=== PATIENT | male | born 1980 | race Two or more races ===

== ENCOUNTER 2024-07-12 16:57 | Inpatient (IN) | payer MEDICAID, SELFPAY ==
[2024-07-12] VITALS (9 sets, daily range): BP systolic 120–162; BP diastolic 68–97; PULSE 77–92; RESP 13–98; TEMP 37.1–37.3; O2SAT 96–98
--- NOTE | 2024-07-12 17:10 | XR_ITS ---
Examination: CT abdomen with intravenous contrast CT pelvis with intravenous contrast 2-D coronal reconstructions 2-D sagittal reconstructions Date and time of exam:July 12, 20242010 hours INDICATIONS: Gastrointestinal bleeding abdominal pain vomiting blood, blood in the stool beginning 3 days ago. CTDI: vol (mGy) 5.71 DLP: (mGycm) 285 Technique: Multiple axial sections of the abdomen and pelvis have been obtained. 64 slice high-resolution scanner used. 3 mm axial sections have been obtained, post intravenous injection 60 cc [id number] 2-D sagittal, coronal reconstructions obtained. Low dose protocols were performed. One or more of the following dose reduction techniques were used; automated exposure control, adjustment of the mA and/or KV according to patient size, use of iterative reconstruction technique. Findings: Mild enlargement cardiac contour Bibasilar pneumonia Thickening along wall of the esophagus Cirrhosis, moderate ascites Contracted gallbladder Portosystemic collateral vessels medial to the spleen Esophageal varices Perigastric varices No pancreatic mass Mild diffuse thickening of the colonic wall Intact osseous structures No renal or ureteral calculi, no bowel obstruction IMPRESSION: Cirrhosis Moderate ascites Esophageal and perigastric varices Hepatic colopathy
--- NOTE | 2024-07-12 17:10 | EKG_ITS ---
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
--- NOTE | 2024-07-12 17:10 | XR_ITS ---
Examination: Venous duplex lower extremity sonogram, bilateral. Date and time of exam: July 12, 2024 1758 hours INDICATIONS: Bilateral leg swelling and pain beginning 10 days ago Technique: Multiple sonographic images of the deep venous system have been obtained. B-mode/2-D grayscale imaging of vascular structures and Doppler spectral analysis (waveforms) and color performed Both legs are examined. Findings: Deep venous systems do not demonstrate abnormal echogenicity. All visualized deep veins exhibit compressibility. All visualized deep veins exhibit augmentation. Impression: Negative for deep vein thrombosis
--- NOTE | 2024-07-12 17:11 | PD.EDRME ---
Rapid Medical Screening Exam [facility] Arrival date/time: 07/12/24 16:57 44-year-old male presents the emergency department day for complaints of abdominal distention and pain patient reports blood in his stool and vomiting blood Chief Complaint: Abdominal Pain
[2024-07-12 18:34] LABS: Basophils # (Auto) 0.1 Thou/mm3 (0.0-0.2); Basophils % (Auto) 1 % (0-2.5); Eosinophils # (Auto) 0.3 Thou/mm3 (0.0-0.5); Eosinophils % (Auto) 3 % (0-10); Immature Granulocytes % (Auto) 0 % (0-0); Immature Granulocytes Auto 0.03 Thou/mm3 (0.00-0.00); Lymphocytes # (Auto) 2.1 Thou/mm3 (1.0-4.8); Lymphocytes % (Auto) 20 % (10-50); Mean Corpuscular HGB Conc 34.3 g/dl (31.0-37.0); Mean Corpuscular Hemoglobin 31.1 pg (25.0-35.0); Mean Corpuscular Volume 90 fL (80-100); Monocytes # (Auto) 1.3 Thou/mm3 (0.0-0.8); Monocytes % (Auto) 12 % (0-12); Neutrophils # (Auto) 6.8 Thou/mm3 (1.8-7.7); Neutrophils % (Auto) 64 % (37-80); Nucleated Red Blood Cell % 0 /100 WBC (0); Platelet Count 292 Thou/mm3 (140-440); RDW Standard Deviation 57.7 fL (35.1-43.9); Red Blood Count 2.19 Miln/mm3 (4.50-5.90); White Blood Count 10.6 Thou/mm3 (3.8-10.6)
[2024-07-12 18:46] LABS: INR 1.5 (0.9-1.3); Partial Thromboplastin Time 30.5 Seconds (22.0-36.0); Prothrombin Time 15.6 Seconds (9.0-12.2)
[2024-07-12 18:49] LABS: Ammonia 14 uMol/L (11-32)
[2024-07-12 18:50] LABS: Alanine Aminotransferase 23 U/L (10-49); Albumin, Serum 2.9 gm/dL (3.5-5.0); Albumin/Globulin Ratio 0.6 (1.2-2.2); Alcohol, Blood Medical < 10.0 mg/dL (0-10.0); Alkaline Phosphatase 223 U/L (46-116); Anion Gap 7 (7-16); Aspartate Amino Transferase 74 U/L (0-34); BUN/Creatinine Ratio 8 Ratio (12-20); Bilirubin,Total 1.9 mg/dL (0.3-1.2); Blood Urea Nitrogen 6 mg/dL (9-23); Calcium 7.5 mg/dL (8.3-10.6); Calcium (Corrected) 8.4 mg/dL (8.5-10.1); Carbon Dioxide 26.4 mMol/L (20.0-31.0); Chloride 104 mMol/L (98-107); Creatinine (Component) 0.8 mg/dL (0.6-1.3); Globulin 4.5 gm/dL (2.3-3.5); Glucose 170 mg/dL (74-106); Lipase 89 U/L (12-53); Osmolality,Calculated 275 (275-295); Potassium 3.8 mMol/L (3.4-5.1); Sodium 137 mMol/L (136-145); Total Protein 7.4 gm/dL (5.7-8.2); Troponin I < 0.020 ng/mL (0.0-0.045); eGFR > 60 See Note
[2024-07-12 18:52] LABS: Hematocrit 19.8 % (41.0-53.0); Hemoglobin 6.8 g/dL (13.5-16.0)
[2024-07-12 20:14] LABS: Magnesium 1.7 mg/dL (1.6-2.6)
--- NOTE | 2024-07-12 20:45 | PD.EDADULT ---
ED General RME/HPI General Chief complaint: Abdominal Pain Stated complaint: ABD PAIN, BLOODY EMESIS/STOOL,GENERALIZED SWELLING Time Seen by Provider: 07/12/24 18:59 Arrival date/time: 07/12/24 16:57 RME / HPI RME / HPI narrative: This patient is a 44-year-old male with alcohol use disorder and no significant past medical history presented to the ED with 2 weeks history of abdominal distention, pain and bilateral lower extremity swelling. He reported that he had black tarry stool last week around 3 bowel movements 3 times a day. He denied having a bowel movement from last 5 day. He felt nauseous however denied vomiting. He rated his generalized abdominal pain as a 7 on 10 nonradiating and achy in nature with abdominal distention. He had subjective feeling of fever/chills and generalized weakness. He has been feeling dizzy from past couple of days. Prior to 2 weeks, patient reported to have coffee-ground emesis however did not had vomiting recently. He drinks alcohol moderately and last drink was yesterday. He usually drinks 1-2 beers every day. He does not follows up with a PCP as outpatient. He does reported to have mild shortness of breath with chest pain. He stated the chest pain comes with breathing. He wakes up at the night to urinate more than 6-7 times. He has mild exertional shortness of breath. Denies dysuria or burning during urination. Vitals showed mildly elevated blood pressure 162/97, heart rate 83 bpm. Breathing comfortably and afebrile. He was saturating well on room air. Labs were significant for acute blood loss anemia with hemoglobin 6.8, hematocrit 19.8% with platelet count 292. Coagulopathy with INR 1.5. Electrolyte panel unremarkable with kidney function stable BUN 6 and creatinine 0.8. Blood glucose 170. Corrected calcium 8.4. Magnesium 1.7. Elevated T. bili 1.9 with AST 74 ALT 23. Mildly elevated ALP 223. Ammonia unremarkable troponin I negative. Albumin 2.9. Mildly elevated lipase 89. Blood alcohol level less than 10. Hep panel pending. Venous Doppler was negative for DVT.EKG showed sinus rhythm with QTc 436. CT abdomen showed moderate ascites with gastric and esophageal varices with hepatic colopathy. Patient would need to be admitted for GI bleed/acute blood loss anemia, liver cirrhosis with esophageal varices, possible SBP, and need to have paracentesis therapeutic and diagnostic to evaluate for ruling out SBP. IV antibiotic Rocephin 2 g was given x 1, in addition to Protonix, octreotide and electrolytes calcium gluconate and magnesium was repleted. GI specialist, Dr. Mcneal was consulted who recommended to keep the patient n.p.o. and he will likely perform endoscopy tomorrow morning. Admitting Hospitalist team was consulted for admission. PMH: Nonsignificant PSH: Appendectomy SH: Drinks alcohol moderately 1-2 beers every day. Last drink was yesterday. No history of illicit drug use. Denies smoking. Allergies: NKDA Home meds none MD complaint: abdominal distention and pain with B/L LE swelling Onset (ago): week(s) (2) Location: abdomen Radiation: non-radiation and abdomen Severity: moderate Severity scale (1-10): 7 Quality: aching Consistency: intermittent Relieving factors: none Associated symptoms: malaise and shortness of breath Related Data Allergies Allergy/AdvReac Type Severity Reaction Status Date / Time No Known Allergies Allergy Verified 07/12/24 17:03 Review of Systems Review of Systems Systems Reviewed: All systems reviewed, normal except as documented ED Exam Narrative Physical exam: GENERAL APPEARANCE: AxOx4, pale appearing male in mild distress due to abdominal pain. Saturating well on room air. HEENT: NC, AT. MMM. EOMI, clear conjunctiva, oropharynx clear. NECK: Supple without lymphadenopathy. No stiffness or restricted ROM. HEART: Regular rate and regular rhythm, normal S1/S2, no m/r/g LUNGS: CTAB, moving air well. No crackles or wheezes are heard. ABDOMEN: Soft, generalized abdominal tenderness more in epigastric, fluid thrill with abdominal distention. Active bowel sounds BACK: No CVAT, no obvious deformity. EXTREMITIES: Bilateral lower extremity edema pitting up to knees 2+ NEUROLOGICAL: Grossly nonfocal. Alert and oriented, moving all 4 extremities. CN not formally tested but appear grossly intact. Observed to ambulate with normal gait. Skin: Warm and dry without any rash. Psych: Appropriate mood and affect Course Quality Measures none Orders Category Date Time Status CT Screening NOW Care 07/12/24 17:11 Active EKG (ED ONLY) *Do not use* NOW Care 07/12/24 17:10 Completed Rodriguez [Urinary Catheter] QS Care 07/12/24 20:41 Active NPO STAT Care 07/12/24 19:40 Active Orthostatic Vitals NOW Care 07/12/24 19:39 Active Strict Intake and Output Routine Care 07/12/24 20:41 Ordered Transfuse,blood/blood products NOW Care 07/12/24 18:[address] abdomen pelvis w con Stat Exams 07/12/24 17:10 Taken EKG (ED Only) Stat Exams 07/12/24 17:10 Draft US venous doppler LE BI Stat Exams 07/12/24 17:10 Completed Alcohol, Blood Medical Stat Lab 07/12/24 18:20 Completed Ammonia Stat Lab 07/12/24 18:20 Completed CBC Stat Lab 07/12/24 18:20 Completed Comprehensive Metabolic Panel Stat Lab 07/12/24 18:20 Completed Drug Screen,Urine Stat Lab 07/12/24 20:44 Ordered Hepatitis Acute Panel Stat Lab 07/12/24 18:20 Received Lactate (Lactic Acid) Stat Lab 07/12/24 20:43 Ordered Lipase Stat Lab 07/12/24 18:20 Completed Magnesium Stat Lab 07/12/24 19:48 Completed Partial Thromboplastin Time Stat Lab 07/12/24 18:20 Completed Procalcitonin Stat Lab 07/12/24 20:43 Ordered Prothrombin Time with INR Stat Lab 07/12/24 18:20 Completed Troponin I Stat Lab 07/12/24 18:20 Completed Type and Screen Stat Lab 07/12/24 19:08 Results Urinalysis Stat Lab 07/12/24 20:44 Ordered prbc [Red Blood Cells] Stat Lab 07/12/24 19:08 Results Calcium Gluconate 10% Inj Med 07/12/24 20:43 Discontinued 1 gm IV X1 ONE Magnesium Sulfate 4 GM Ivpb [Magnesium Sulfate Ivpb] Med 07/12/24 20:41 Active 4 gm in 50 ml IV X1 Octreotide Acet Inj [SandoSTATIN Inj] Med 07/12/24 19:37 Discontinued 50 mcg IV X1 ONE Pantoprazole Inj [Protonix Inj] Med 07/12/24 19:37 Discontinued 80 mg IVP X1 ONE Pantoprazole/Ns 80Mg IV Premix [Protonix/NS 80mg IV Med 07/12/24 19:38 Active Premix] 80 mg in 100 ml IV X1 Phytonadione Inj [Vitamin K Inj] Med 07/12/24 19:37 Discontinued 10 mg SC X1 ONE Sodium Chloride 0.9% [Ns] 100 ml Med 07/12/24 20:00 Active Octreotide Acet Inj [SandoSTATIN Inj] 1,000 mcg IV 50 mcg/hr Sodium Chloride 0.9% [Ns] 100 ml Med 07/13/24 16:00 Pending Octreotide Acet Inj [SandoSTATIN Inj] 1,000 mcg IV 50 mcg/hr Vital Signs Vital signs: Vital Signs Temperature 98.8 F 07/12/24 17:11 Pulse Rate 83 07/12/24 17:11 Respiratory Rate 20 07/12/24 17:11 Blood Pressure 162/97 H 07/12/24 17:11 Pulse Oximetry (%) 97 07/12/24 17:11 Oxygen Delivery Method Room Air 07/12/24 17:11 Discharge Plan Plan Patient Disposition: Admit Acute Care w/in Hospital Prescriptions/Referrals Referrals: No Primary/Family,Physician [Primary Care Provider] - In 1 week Problem List Clinical Impression: GI (gastrointestinal bleed), Cirrhosis of liver Patient/Caregiver Discharge Instructions Print Language: Serbian Stand Alone Forms: Brandy Award Info., Patient Portal Info Letter MDM Medication Administration(s) Medication Administration History Octreotide Acetate 1,000 mcg/ (Sodium Chloride) 102 mls @ 5.1 mls/hr IV .Q20H ELIDA; Protocol Stop: 07/17/24 20:00 Pantoprazole Sodium (Protonix/Ns 80mg Iv Premix) 80 mg in 100 mls @ 10 mls/hr IV X1 ONE Stop: 07/13/24 05:37 Octreotide Acetate 1,000 mcg/ (Sodium Chloride) 102 mls @ 5.1 mls/hr IV .Q20H ONE; Protocol Stop: 07/13/24 15:59 Magnesium Sulfate (Magnesium Sulfate Ivpb) 4 gm in 50 mls @ 12.5 mls/hr IV X1 ONE Stop: 07/13/24 00:40 Discontinued Medications Calcium Gluconate (Calcium Gluconate 10% Inj 1 Gm/10 Ml Vial) 1 gm IV X1 ONE Stop: 07/12/24 20:44 Octreotide Acetate (Octreotide Acet Inj 50 Mcg/Ml Vial) 50 mcg IV X1 ONE Stop: 07/12/24 19:38 Pantoprazole Sodium (Pantoprazole Inj 40 Mg Vial) 80 mg IVP X1 ONE Stop: 07/12/24 19:38 Phytonadione (Phytonadione Inj 10 Mg/Ml Amp) 10 mg SC X1 ONE Stop: 07/12/24 19:38
[2024-07-12] MEDS: PANTOPRAZOLE INJ 40 MG VIAL 80 MG IVP (21:18)
[2024-07-12] MEDS: OCTREOTIDE ACET INJ 1,000 MCG in SODIUM CHLORIDE 0.9% 100 ML 5.1 MCG IV (21:18)
[2024-07-12] MEDS: PHYTONADIONE INJ 10 MG/ML AMP SC (21:18)
[2024-07-12] MEDS: CALCIUM GLUCONATE 10% INJ 1 GM/10 ML VIAL IV (21:19)
[2024-07-12 21:22] LABS: Lactate (Lactic Acid) 1.2 mMol/L (0.4-2.0)
[2024-07-12 21:28] LABS: Procalcitonin 0.16 ng/ml (0.0-0.49)
--- NOTE | 2024-07-12 21:31 | EVENTNT_ITS ---
Documentation for date of: 07/12/24 Event Note Event Note: A 44-year-old male presented to the ER with the chief complaint of abdominal pain and swelling. During the past 2 weeks, patient c/o progressive abdominal distention, associated with generalized achy abdominal pain (7/10, non-radiating). He also c/o nausea, black tarry stools (last episode one week ago), mild chest pain with breathing, exertional shortness of breath, dizziness (resolved at presentation), subjective fevers/chills, nighttime urinary frequency (>6?7 times per night), and bilateral lower extremity swelling. He denied vomiting, dysuria, burning with urination, or actual fever. He reported drinking beer daily for the past 15 years, currently averaging a 12-pack per day; last drink was yesterday. He went [facility] and was referred to ER for evaluation. The patient has a history of alcohol use disorder. No other medical conditions were reported. Surgical history includes appendectomy. Current medications: none. Social history includes heavy daily alcohol use (12-pack/day), no tobacco or drug use. In the ER, vital signs recorded as temp 98.8 F, HR 83 bpm, RR 20, BP 162/97 mmHg. Labs revealed Hb 6.8, WBC 10.6, Plt 292, Na 137, K 3.8, Cl 104, BUN 6, Cr 0.8, eGFR >60, Mg 1.7, AST 74, ALT 23, bilirubin 1.9, INR 1.5. EKG showed sinus rhythm. DVT study was negative. CT showed liver cirrhosis, ascites, and esophageal/perigastric varices. Interventions included initiation of PPI and octreotide. He was admitted for further management. 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
[2024-07-12] MEDS: PANTOPRAZOLE/NS 80MG IV PREMIX 80 MG/100 ML BAG 10 MG IV (21:33)
--- NOTE | 2024-07-12 21:36 | ESCONSULT_ITS ---
HPI Data of Consult Primary Care Provider: Physician No Primary/Family Consult Narrative Reason for consult: Melena History of present illness: 44 years old male presented to the emergency room with abdominal distention pain and history of melanotic stools for the last 1 week He continues to drink beer every day at least admitting to 2-3 beers a day He was subsequently admitted after discussion with the internal medicine team cc:: cc: Review of Systems Review of Systems Systems Reviewed: All systems reviewed, normal except as documented Past Medical History Surgical History OTHER SURGICAL HX: Cirrhotic liver disease secondary to alcohol Meds Home Medications and Allergies Home Medications ?Medication ?Instructions ?Recorded ?Confirmed ?Type No Known Home Medications 07/13/24 05/0 09/01 History Allergies Allergy/AdvReac Type Severity Reaction Status Date / Time No Known Allergies Allergy Verified 07/12/24 17:03 Exam Vital Signs Temp Pulse Resp BP Pulse Ox O2 Del Method 98.8 F 86 18 143/85 H 96 Room Air 07/12/24 20:39 07/12/24 20:54 07/12/24 20:39 07/12/24 20:54 07/12/24 20:39 07/12/24 20:39 Constitutional Comments: Alert oriented Routine Respiratory Exam Comments: Normal to auscultation Routine Abdominal Exam Comments: Positive distention positive bowel sounds Results Labs 07/13/24 05:14 07/13/24 05:14 Labs: Short CBC 07/12/24 Range/Units 18:20 WBC 10.6 (3.8-10.6) Thou/mm3 Hgb 6.8 L* (13.5-16.0) g/dL Hct 19.8 L* (41.0-53.0) % Plt Count 292 (140-440) Thou/mm3 BMP 07/12/24 18:20 Sodium 137 Potassium 3.8 Chloride 104 Carbon Dioxide 26.4 BUN 6 L Creatinine 0.8 Glucose 170 H Calcium 7.5 L Cardiac Enzymes 07/12/24 Range/Units 18:20 Troponin I < 0.020 (0.0-0.045) ng/mL Liver Function 07/12/24 Range/Units 18:20 Total Bilirubin 1.9 H (0.3-1.2) mg/dL AST 74 H (0-34) U/L ALT 23 (10-49) U/L Alkaline Phosphatase 223 H (46-116) U/L Albumin 2.9 L (3.5-5.0) gm/dL Assessment and Plan Additional Assessment & Plan Additional Plan: # Melena most likely upper GI bleed in the setting of cirrhotic liver disease esophageal varices or hypertensive portal gastropathy with mucosal oozing of blood is the most likely differential diagnosis Plan N.p.o. Octreotide 50 mcg IV push and then 50 mcg/h infusion IV Protonix Serial CBC Consent obtained for fiberoptic esophagogastroduodenoscopy with possible biopsy possible therapeutic intervention under intravenous moderate sedation Advised complete abstinence from alcohol Thank you very much for the opportunity to participate in care of this patient
[2024-07-12] MEDS: OCTREOTIDE ACET INJ 50 mCg/ML VIAL IV (21:37)
[2024-07-12] MEDS: cefTRIAXone 2 GM in SODIUM CHLORIDE 0.9% (Popper) 50 ML IV (21:54)
[2024-07-12] MEDS: BUMETANIDE INJ 0.25 MG/ML VIAL 4 ML 1 MG IVP (21:54)
[2024-07-12 22:02] LABS: Hepatitis A Antibody IgM Non Reactive (Non React); Hepatitis B Core Antibody IgM Non Reactive (Non React); Hepatitis B Surface Antigen Non Reactive (Non React); Hepatitis C Antibody Non Reactive (Non React)
--- NOTE | 2024-07-12 22:23 | PD.RESHP ---
Documentation for date of: 07/12/24 HPI History of Present Illness Chief complaint: vomiting blood History of present illness: Yusef Moy is 44 yr male with PMH of alcohol use disorder who has presented to ED due to multiple episodes of bloody emesis and black tarry stools. He has had about 3-4 vomiting episodes and black tarry stool last week around 3 bowel movements 3 times a day. He denies this in the past and has never seen GI before. Also endorses swelling in LE, abdomen, and hands. Stated that he had some abdominal swelling couple months ago which resolved in its own in 2 days. He had subjective feeling of fever/chills and generalized weakness. He has been feeling dizzy from past couple of days with difficulty in eating or drinking water due to distension. He wakes up at the night to urinate more than 6-7 times. He has mild exertional shortness of breath. Denies dysuria or burning during urination. Patient has experienced withdrawl symptoms (tremors) in the past but denied any while at bedside. Last drink was one beer day before admission. He typically drinks a 12 pack every 1-2 days. In ED, BP 162/97, HR 83, RR 20, afebrile. Hb 6.8, Hct 20, MCV 90, plts 292, WBC 10.6. AST mildly elevated 74, ALT 23, ALP elevated 223, ammonia 14, Br 1.9, coagulopathy seen with PT 15.6, INR 1.5, PTT 30.5. CT A/P showed cirrhosis with mild ascites, varicies. Doppler u/s negative for DVT. He was started on octreotide, pantoprazole IV 80mg x1, ceftriaxone x1. GI Dr. Mcneal was consulted. Patient will be admitted for management of GI bleed in setting of cirhosis. PMH: Nonsignificant PSH: Appendectomy FamHx: history of drinking in father's side SH: Has not been working recently due to the swelling. Drinks 12 pack every other day. Last drink was yesterday. No history of illicit drug use. Denies smoking. Allergies: NKDA Home meds none Review of Systems Review of Systems Systems Reviewed: All systems reviewed, normal except as documented Exam Vital Signs Temp Pulse Resp BP Pulse Ox O2 Del Method 98.8 F 86 18 135/78 H 96 Room Air 07/12/24 20:39 07/12/24 21:54 07/12/24 20:39 07/12/24 21:54 07/12/24 20:39 07/12/24 20:39 Narrative Exam General: Middle aged male. No acute distress, cooperative HEENT: NCAT, No JVD noted. Mucosa dry. Pupils are equal and reactive to light bilaterally, no icterus Cardiovascular: Normal S1 and S2. Regular rate and rhythm. Respiratory: Lungs are clear to auscultation bilaterally. No wheezing or crackles heard. Abdomen: Soft, nontender, distended, positive fluid wave. Skin: Warm to touch, dry, spider angiomas noted on chest, tattoos Musculoskeletal: No gross injuries. Able to move all 4 extremities. b/L LE edema and in hands. Neuro: Alert and oriented x3. No focal neuro deficits. Psych: Normal affect and mood Results: Labs 07/12/24 18:20 07/12/24 18:20 Labs: Short CBC 07/12/24 Range/Units 18:20 WBC 10.6 (3.8-10.6) Thou/mm3 Hgb 6.8 L* (13.5-16.0) g/dL Hct 19.8 L* (41.0-53.0) % Plt Count 292 (140-440) Thou/mm3 BMP 07/12/24 18:20 Sodium 137 Potassium 3.8 Chloride 104 Carbon Dioxide 26.4 BUN 6 L Creatinine 0.8 Glucose 170 H Calcium 7.5 L Cardiac Enzymes 07/12/24 Range/Units 18:20 Troponin I < 0.020 (0.0-0.045) ng/mL Liver Function 07/12/24 Range/Units 18:20 Total Bilirubin 1.9 H (0.3-1.2) mg/dL AST 74 H (0-34) U/L ALT 23 (10-49) U/L Alkaline Phosphatase 223 H (46-116) U/L Albumin 2.9 L (3.5-5.0) gm/dL Quality Measures Quality Measures none Medications Home Medications and Allergies Home Medications ?Medication ?Instructions ?Recorded ?Confirmed ?Type No Known Home Medications 07/13/24 07/13/24 History Allergies Allergy/AdvReac Type Severity Reaction Status Date / Time No Known Allergies Allergy Verified 07/12/24 17:03 Visit Medications Acetaminophen (Acetaminophen 325 Mg Tablet) 650 mg PO Q6H PRN PRN Reason: Fever >100.3 or pain Stop: 08/11/24 22:08 Octreotide Acetate 1,000 mcg/ (Sodium Chloride) 102 mls @ 5.1 mls/hr IV .Q20H LEIDA; Protocol Stop: 07/17/24 20:00 Pantoprazole Sodium (Protonix/Ns 80mg Iv Premix) 80 mg in 100 mls @ 10 mls/hr IV X1 ONE Stop: 07/13/24 05:37 Last Admin: 07/12/24 21:33 Dose: 10 mls/hr Octreotide Acetate 1,000 mcg/ (Sodium Chloride) 102 mls @ 5.1 mls/hr IV .Q20H ONE; Protocol Stop: 07/13/24 15:59 Last Admin: 07/12/24 21:18 Dose: 50 mcg/hr, 5.1 mls/hr Magnesium Sulfate (Magnesium Sulfate Ivpb) 4 gm in 50 mls @ 12.5 mls/hr IV X1 ONE Stop: 07/13/24 00:40 Ondansetron HCl (Ondansetron Inj 2 Mg/Ml Inj 2 Ml) 4 mg IV Q6H PRN; Protocol PRN Reason: NAUSEA OR VOMITING Stop: 08/11/24 22:08 Discontinued Medications Bumetanide (Bumetanide Inj 0.25 Mg/Ml Vial 4 Ml) 1 mg IVP X1 ONE Stop: 07/12/24 21:15 Last Admin: 07/12/24 21:54 Dose: 1 mg Calcium Gluconate (Calcium Gluconate 10% Inj 1 Gm/10 Ml Vial) 1 gm IV X1 ONE Stop: 07/12/24 20:44 Last Admin: 07/12/24 21:19 Dose: 1 gm Ceftriaxone Sodium/Dextrose (Rocephin/D5w 1gm Iv Premix) 1 gm in 50 mls @ 100 mls/hr IV X1 ONE Stop: 07/12/24 21:42 Ceftriaxone Sodium 2 gm/ (Sodium Chloride) 50 mls @ 100 mls/hr IV X1 ONE Stop: 07/12/24 21:47 Last Admin: 07/12/24 21:54 Dose: 100 mls/hr Octreotide Acetate (Octreotide Acet Inj 50 Mcg/Ml Vial) 50 mcg IV X1 ONE Stop: 07/12/24 19:38 Last Admin: 07/12/24 21:37 Dose: 50 mcg Pantoprazole Sodium (Pantoprazole Inj 40 Mg Vial) 80 mg IVP X1 ONE Stop: 07/12/24 19:38 Last Admin: 07/12/24 21:18 Dose: 80 mg Phytonadione (Phytonadione Inj 10 Mg/Ml Amp) 10 mg SC X1 ONE Stop: 07/12/24 19:38 Last Admin: 07/12/24 21:18 Dose: 10 mg Assessment & Plan Plan Yusef Moy is 44 yr male with PMH of alcohol use disorder who has presented to ED due to multiple episodes of bloody emesis and black tarry stools. He typically drinks a 12 pack every 1-[address] Mcneal was consulted. Patient will be admitted for management of GI bleed in setting of cirhosis. #Workup GI bleed in setting of #Decompensated liver cirhosis #Ascites #Hx alcohol use disorder Patient drink one 12 pack every other day. Drinking history for couple of years. Having multiple episodes of bloody emesis and black tarry stools. Hb 6.8, Hct 20, MCV 90, plts 292, AST mildly elevated 74, ALT 23, ALP elevated 223, ammonia 14, Br 1.9, coagulopathy seen with PT 15.6, INR 1.5, PTT 30.5. CT A/P showed cirrhosis with mild ascites, varicies. Doppler u/s negative for DVT. He was started on octreotide, pantoprazole IV 80mg x1, ceftriaxone x1 in ED. Received 1 unit prbc. Maddrey score: 18.5--good prognosis. No benefit from steroids. Child-Wong Class B--8points. MELD-Na: 15 points (<2% 90 day mortality) - GI Dr. Mcneal consulted, appreciate recs - NPO - IV Pantoprazole 40 mg BID - Hold NSAIDs, antiplatelets - Octreotide infusion for 5 days - Daily CBC - Transfuse if Hb <7 - Day team to consider diagnostic paracentesis Health maintenance: Dispo: tele, GI bleed FEN: NPO DVT prophylaxis: SCDs CODE STATUS: Full code The patient's management plan was discussed with my attending physician Dr. Perdue. Tiffanie Salcedo, PGY-1 Attending Provider Attestation/Addendum Pt was evaluated and plan formulated together with the housestaff team. I have reviewed the residents note above and agree with most of its content. Please refer to the residents note for additional details.
[2024-07-12] MEDS: Magnesium Sulfate 4 GM Ivpb 4 GM/50 ML BAG IV (22:40)
[2024-07-12 22:49] LABS: Collection Type, Urine Clean Catch; RBC,Urine 0 /hpf (0-3); WBC,Urine 0 /hpf (0-5)
[2024-07-12] MEDS: ACETAMINOPHEN 325 MG TABLET 650 MG PO (22:58)
[2024-07-12] MEDS: DEXTROSE 50%-WATER INJ 50 ML SYRINGE IV (22:59)
[2024-07-12 23:14] LABS: Amphetamine/Methamp Scrn,U Negative (Negative); Barbiturate Screen,Urine Negative (Negative); Benzodiazepines Screen,Urine Negative (Negative); Benzoylecgonine Screen, Ur Negative (Negative); Fentanyl Screen,Urine Negative (Negative); Opiate Screen,Urine Negative (Negative); THC Screen,Urine Negative (Negative)
[2024-07-13] VITALS (25 sets, daily range): BP systolic 119–173; BP diastolic 68–108; PULSE 58–89; RESP 15–96; TEMP 36.2–37.2; O2SAT 95–98; BMI 22.3
--- NOTE | 2024-07-13 00:10 | PC.NURSE ---
Pt came in from ED, alert and oriented, sister at bedside. Pt will kept NPO. Pt refused Rodriguez cath insertion at tis time, using a urinal. Will continue to monitor.
[2024-07-13 00:37] LABS: Amorphous Crystals,Urine Present (Absent); Bilirubin,Urine Negative (Negative); Blood,Urine Negative (Negative); Clarity,Urine Clear (Clear/Hazy); Color,Urine Lt-Yellow (Lt Yel-Yel); Glucose, Urine Negative (Negative); Ketones,Urine Negative (Negative); Leukocyte Esterase,Urine Negative (Negative); Nitrite,Urine Negative (Negative); Protein,Urine Negative (Neg - Trace); Specific Gravity,Urine 1.024 (1.001-1.035); Squamous Epithelial Cell,Urine < 1 /hpf (0-5); Urobilinogen,Urine Negative mg/dL (0.0-1.0)
[2024-07-13 01:25] LABS: Path Review Blood Smear Sent to Pathologist
[2024-07-13 06:19] LABS: Basophils # (Auto) 0.1 Thou/mm3 (0.0-0.2); Basophils % (Auto) 1 % (0-2.5); Eosinophils # (Auto) 0.6 Thou/mm3 (0.0-0.5); Eosinophils % (Auto) 5 % (0-10); Hemoglobin 8.9 g/dL (13.5-16.0); Immature Granulocytes % (Auto) 0 % (0-0); Immature Granulocytes Auto 0.03 Thou/mm3 (0.00-0.00); Lymphocytes # (Auto) 2.4 Thou/mm3 (1.0-4.8); Lymphocytes % (Auto) 22 % (10-50); Mean Corpuscular HGB Conc 34.2 g/dl (31.0-37.0); Mean Corpuscular Hemoglobin 29.6 pg (25.0-35.0); Mean Corpuscular Volume 86 fL (80-100); Monocytes # (Auto) 1.3 Thou/mm3 (0.0-0.8); Monocytes % (Auto) 12 % (0-12); Neutrophils # (Auto) 6.5 Thou/mm3 (1.8-7.7); Neutrophils % (Auto) 60 % (37-80); Nucleated Red Blood Cell % 0 /100 WBC (0); Platelet Count 252 Thou/mm3 (140-440); RDW Standard Deviation 56.9 fL (35.1-43.9); Red Blood Count 3.01 Miln/mm3 (4.50-5.90); White Blood Count 10.9 Thou/mm3 (3.8-10.6)
[2024-07-13 06:35] LABS: Alanine Aminotransferase 21 U/L (10-49); Albumin, Serum 2.7 gm/dL (3.5-5.0); Albumin/Globulin Ratio 0.6 (1.2-2.2); Alkaline Phosphatase 208 U/L (46-116); Anion Gap 8 (7-16); Aspartate Amino Transferase 69 U/L (0-34); BUN/Creatinine Ratio 9 Ratio (12-20); Bilirubin,Total 2.2 mg/dL (0.3-1.2); Blood Urea Nitrogen 6 mg/dL (9-23); Calcium 7.6 mg/dL (8.3-10.6); Calcium (Corrected) 8.6 mg/dL (8.5-10.1); Carbon Dioxide 24.4 mMol/L (20.0-31.0); Chloride 105 mMol/L (98-107); Creatinine (Component) 0.7 mg/dL (0.6-1.3); Estimated Creatinine Clearance 115.9 mL/min (>60); Globulin 4.4 gm/dL (2.3-3.5); Glucose 110 mg/dL (74-106); Osmolality,Calculated 272 (275-295); Potassium 3.8 mMol/L (3.4-5.1); Sodium 137 mMol/L (136-145); Total Protein 7.1 gm/dL (5.7-8.2); eGFR > 60 See Note
[2024-07-13] MEDS: FOLIC ACID 1 MG TABLET PO ×2 (08:39→20:27)
[2024-07-13] MEDS: THIAMINE 100 MG TABLET PO ×2 (08:39→20:26)
[2024-07-13] MEDS: PANTOPRAZOLE INJ 40 MG VIAL IV ×2 (08:39→20:26)
[2024-07-13] MEDS: cefTRIAXone 2 GM in SODIUM CHLORIDE 0.9% (Popper) 50 ML IV (08:39)
--- NOTE | 2024-07-13 09:07 | ESPR_ITS ---
Documentation for date of: 07/13/24 Subjective Subjective Interval history: No acute overnight events noted. Seen and examined at bedside and does not have any complaints at this time other than mild abdominal pain. Denies nausea, vomiting, no bowel movements, fever, chills. Pending EGD later today and ordered paracentesis with fluid analysis as patient has never had one done in the past. Continues on octreotide drip, pantoprazole 40 mg IV BID, and CIWA protocol though patient states he only had 1 beer prior to admission and hadn't had a drink 1 week prior to that. Exam Vital Signs Temp Pulse Resp BP Pulse Ox O2 Del Method 97.4 F 58 L 18 123/68 98 Room Air 07/13/24 04:00 07/13/24 07:43 07/13/24 04:00 07/13/24 04:00 07/13/24 04:00 07/13/24 04:00 Narrative Exam General: AOx3, no acute distress, able to speak full sentences HEENT: NC/AT, mucous membranes moist, bilateral sclera anicteric Cardiovascular: regular rate and rhythm, S1/S2 present, no murmurs appreciated Pulmonary: clear to auscultation bilaterally, no rales/rhonchi/wheezes Abdominal: mildly distended, tender to palpation, soft, rebound/guarding, normal bowel sounds present Musculoskeletal: normal ROM, no peripheral edema Skin: spider angiomas on chest, warm and dry, intact, no rashes Neuro: CN II-XII intact, no focal deficits Objective Labs 07/13/24 05:14 07/13/24 05:14 Labs: Laboratory Results - last 24 hr 07/12/24 07/12/24 07/12/24 18:20 19:08 19:48 WBC 10.6 RBC 2.19 L Hgb 6.8 L* Hct 19.8 L* MCV 90 MCH 31.1 MCHC 34.3 RDW Std Deviation 57.7 H Plt Count 292 Neut % (Auto) 64 Lymph % (Auto) 20 Ray % (Auto) 12 Eos % (Auto) 3 Baso % (Auto) 1 Neut # (Auto) 6.8 Lymph # (Auto) 2.1 Ray # (Auto) 1.3 H Eos # (Auto) 0.3 Baso # (Auto) 0.1 Immature Gran # (Auto) 0.03 H Absolute Nucleated RBC 0.00 Immature Gran % 0 Nucleated RBC % 0 Smear Path Review Sent to Pathologist PT 15.6 H INR 1.5 H APTT 30.5 Sodium 137 Potassium 3.8 Chloride 104 Carbon Dioxide 26.4 Anion Gap 7 BUN 6 L Creatinine 0.8 Estim Creat Clear Calc Not Performed. eGFR > 60 BUN/Creatinine Ratio 8 L Glucose 170 H Calculated Osmolality 275 Lactic Acid Calcium 7.5 L Corrected Calcium 8.4 L Phosphorus Magnesium 1.7 Total Bilirubin 1.9 H AST 74 H ALT 23 Alkaline Phosphatase 223 H Ammonia 14 Troponin I < 0.020 Total Protein 7.4 Albumin 2.9 L Globulin 4.5 H Albumin/Globulin Ratio 0.6 L Lipase 89 H Procalcitonin 0.16 Ur Collection Type Urine Color Urine Clarity Urine pH Ur Specific [place] Urine Protein Urine Glucose (UA) Urine Ketones Urine Blood Urine Nitrite Urine Bilirubin Urine Urobilinogen (Auto) Ur Leukocyte Esterase Urine RBC Urine WBC Ur Squamous Epith Cells Amorphous Crystals Urine Bacteria Urine Opiates Screen Urine Fentanyl Screen Ur Barbiturates Screen U Amphetamin/Meth Scrn U Benzodiazepines Scrn U Cocaine Metab Screen U Marijuana (THC) Screen Ethyl Alcohol < 10.0 Hepatitis A IgM Ab Non Reactive Hep Bs Antigen Non Reactive Hep B Core IgM Ab Non Reactive Hepatitis C Antibody Non Reactive Blood Type A Positive Antibody Screen NEGATIVE Crossmatch See Detail Blood Bank Wristband ID Yes 07/12/24 07/12/24 07/13/24 21:09 22:45 05:14 WBC 10.9 H RBC 3.01 L Hgb 8.9 L D Hct 26.0 L MCV 86 MCH 29.6 MCHC 34.2 RDW Std Deviation 56.9 H Plt Count 252 D Neut % (Auto) 60 Lymph % (Auto) 22 [place] % (Auto) 12 Eos % (Auto) 5 Baso % (Auto) 1 Neut # (Auto) 6.5 Lymph # (Auto) 2.4 Ray # (Auto) 1.3 H Eos # (Auto) 0.6 H Baso # (Auto) 0.1 Immature Gran # (Auto) 0.03 H Absolute Nucleated RBC 0.00 Immature Gran % 0 Nucleated RBC % 0 Smear Path Review PT INR APTT Sodium 137 Potassium 3.8 Chloride 105 Carbon Dioxide 24.4 Anion Gap 8 BUN 6 L Creatinine 0.7 Estim Creat Clear Calc 115.9 eGFR > 60 BUN/Creatinine Ratio 9 L Glucose 110 H D Calculated Osmolality 272 L Lactic Acid 1.2 Calcium 7.6 L Corrected Calcium 8.6 Phosphorus 4.0 Magnesium 2.0 Total Bilirubin 2.2 H AST 69 H ALT 21 Alkaline Phosphatase 208 H Ammonia Troponin I Total Protein 7.1 Albumin 2.7 L Globulin 4.4 H Albumin/Globulin Ratio 0.6 L Lipase Procalcitonin Ur Collection Type Clean Catch Urine Color Lt-Yellow Urine Clarity Clear Urine pH 8.0 H Ur Specific [place] 1.024 Urine Protein Negative Urine Glucose (UA) Negative Urine Ketones Negative Urine Blood Negative Urine Nitrite Negative Urine Bilirubin Negative Urine Urobilinogen (Auto) Negative Ur Leukocyte Esterase Negative Urine RBC 0 Urine WBC 0 Ur Squamous Epith Cells < 1 Amorphous Crystals Present A Urine Bacteria None Urine Opiates Screen Negative Urine Fentanyl Screen Negative Ur Barbiturates Screen Negative U Amphetamin/Meth Scrn Negative U Benzodiazepines Scrn Negative U Cocaine Metab Screen Negative U Marijuana (THC) Screen Negative Ethyl Alcohol Hepatitis A IgM Ab Hep Bs Antigen Hep B Core IgM Ab Hepatitis C Antibody Blood Type Antibody Screen Crossmatch Blood Bank Wristband ID Quality Measures Quality Measures none Assessment & Plan Assessment Current Active Medications: Generic Name Dose Route Start Last Admin Trade Name Freq PRN Reason Stop Dose Admin Acetaminophen 650 mg 07/12/24 22:09 07/12/24 22:58 Acetaminophen 325 Mg Tablet PO 08/11/24 22:08 650 mg Q6H PRN Administration Fever >100.3 or pain Folic Acid 1 mg 07/13/24 09:00 07/13/24 08:39 Folic Acid 1 Mg Tablet PO 07/18/24 08:59 1 mg BID ELIDA Administration Octreotide Acetate 1,000 mcg/ 102 mls @ 5.1 mls/hr 07/13/24 16:00 Sodium Chloride IV 07/17/24 20:00 .Q20H ELIDA Protocol 50 MCG/HR Octreotide Acetate 1,000 mcg/ 102 mls @ 5.1 mls/hr 07/12/24 20:00 07/12/24 21:18 Sodium Chloride IV 07/13/24 15:59 50 mcg/hr .Q20H ONE 5.1 mls/hr Administration Protocol 50 MCG/HR Ceftriaxone Sodium 2 gm/ 50 mls @ 100 mls/hr 07/13/24 09:00 07/13/24 08:39 Sodium Chloride IV 07/20/24 08:59 100 mls/hr QDAY ELIDA Administration Lorazepam 0.5 mg 07/13/24 08:22 Lorazepam 2 Mg/Ml Vial IV 07/18/24 08:21 Q2HR PRN CIWA SCORE 8-13 Lorazepam 1 mg 07/13/24 08:22 Lorazepam 2 Mg/Ml Vial IV 07/18/24 08:21 Q2HR PRN CIWA SCORE 14-19 Lorazepam 2 mg 07/13/24 08:22 Lorazepam 2 Mg/Ml Vial IV 07/18/24 08:21 Q2HR PRN CIWA SCORE 20-25 Lorazepam 2 mg 07/13/24 08:22 Lorazepam 2 Mg/Ml Vial IVP X1 PRN Breakthrough Agitation Ondansetron HCl 4 mg 07/12/24 22:09 Ondansetron Inj 2 Mg/Ml Inj 2 Ml IV 08/11/24 22:08 Q6H PRN NAUSEA OR VOMITING Protocol Pantoprazole Sodium 40 mg 07/13/24 09:00 07/13/24 08:39 Pantoprazole Inj 40 Mg Vial IV 08/12/24 08:59 40 mg BID ELIDA Administration Thiamine HCl 100 mg 07/13/24 09:00 07/13/24 08:39 Thiamine 100 Mg Tablet PO 07/18/24 08:59 100 mg BID ELIDA Administration Plan Yusef Moy is a 44-year-old male with past medical history of alcohol use disorder who presented to the ED for multiple episodes of bloody emesis and black tarry stools. He typically drinks a 12 pack every 1-[address] Mcneal was consulted. Patient admitted for management of GI bleed in setting of cirhosis. #GI bleed in setting of #Decompensated liver cirhosis #History of alcohol use disorder Drinks one 12 pack every other day for couple of years. Presents with multiple episodes of bloody emesis and black tarry stools. Hb 6.8 and status-post 2 units pRBC that improved to 8.9. plts 292, AST mildly elevated 74, ALT 23, ALP elevated 223, ammonia 14, bilirubin 2.2, PT 15.6, INR 1.5, PTT 30.5. CT A/P showed cirrhosis with mild ascites, varicies. Doppler U/S negative for DVT. Maddrey score: 18.5, good prognosis. No benefit from steroids. Child-Wong Class B, 8 points. MELD-Na: 15 points (<2% 90 day mortality) ? GI Dr. Mcneal consulted, appreciate recommendations ? NPO, pending EGD ? IV Pantoprazole 40 mg BID ? Octreotide infusion for 5 days ? Daily CBC, transfuse if Hb <7 ? Hold NSAIDs, antiplatelets #Ascites ? Paracentesis with fluid analysis ordered ? Ceftriaxone 2 g IV daily for SBP Hospital management: Disposition: pending EGD Diet: NPO pending EGD Lines: PIV DVT prophylaxis: SCDs GI prophylaxis: pantoprazole 40 mg IV BID CODE STATUS: full code ----- Plan discussed with attending physician Dr. More Merida MD PGY-1 Internal Medicine Attending Provider Attestation/Addendum I reviewed labs, imaging, EKG, home medications and prior available records. Face to face evaluation was performed by me. I have personally examined the patient and discussed assessment and plan with the IM team. I reviewed the resident note and agree with the plan with exceptions as below. Upper GI bleed Acute anemia Alcohol abuse Alcohol withdrawal Alcoholic liver cirrhosis with ascites Status post 2 PRBC transfusion. H&H improved to 8.9 posttransfusion Continue to monitor H&H Continue PPI IV and octreotide drip Consulted GI: Plan for EGD Continue CIWA protocol Counseled the patient regarding the importance of alcohol cessation Ordered therapeutic and diagnostic paracentesis. Send ascites fluid for analysis and to calculate SAAG
--- NOTE | 2024-07-13 10:45 | CHAP ---
Patient was visited by a Spiritual Care Volunteer on 07/13/2024 between 0900 and 0930 and received comfort, encouragement and/or prayer.
--- NOTE | 2024-07-13 13:51 | XR_ITS ---
Examination: Abdomen sonogram, Limited Date and time of exam: July 13, 2024 1420 hours INDICATIONS: Cirrhosis, increasing ascites and abdominal distention this week Technique: Real-time tmaez scale transabdominal sonographic images of the upper abdomen obtained. Findings: Minimal ascitic fluid IMPRESSION: Minimal ascitic fluid
--- NOTE | 2024-07-13 14:41 | PC.SS ---
Rounding: On Octreiotide, pending EGD
[2024-07-13] MEDS: OCTREOTIDE ACET INJ 1,000 MCG in SODIUM CHLORIDE 0.9% 100 ML 5.1 MCG IV (15:20)
--- NOTE | 2024-07-13 19:20 | SUR.PHASEI ---
Arrived to [facility] via [facility]. Report received from Kiah OHARA. Resting with eyes open. Responding to questions and commands appropriately. No c/o pain or discomfort. No s/o distress.
--- NOTE | 2024-07-13 19:50 | SUR.PHASEI ---
Report given to Kimberlyn OHARA med/sug. Taken to room 355 via gurney. Ambulated to bed with 1 person assist, remberto. well. Call light in hand. Family at bedside. No c/o pain or discomfort.
[2024-07-13] MEDS: ACETAMINOPHEN 325 MG TABLET 650 MG PO (20:26)
[2024-07-14] VITALS (9 sets, daily range): BP systolic 123–154; BP diastolic 69–95; PULSE 60–94; RESP 14–95; TEMP 36.1–36.9; O2SAT 94–96; BMI 22.0
[2024-07-14 06:28] LABS: Basophils # (Auto) 0.1 Thou/mm3 (0.0-0.2); Basophils % (Auto) 1 % (0-2.5); Eosinophils # (Auto) 0.6 Thou/mm3 (0.0-0.5); Eosinophils % (Auto) 6 % (0-10); Hematocrit 28.2 % (41.0-53.0); Hemoglobin 9.4 g/dL (13.5-16.0); Immature Granulocytes % (Auto) 0 % (0-0); Immature Granulocytes Auto 0.03 Thou/mm3 (0.00-0.00); Lymphocytes # (Auto) 2.5 Thou/mm3 (1.0-4.8); Lymphocytes % (Auto) 26 % (10-50); Mean Corpuscular HGB Conc 33.3 g/dl (31.0-37.0); Mean Corpuscular Hemoglobin 29.4 pg (25.0-35.0); Mean Corpuscular Volume 88 fL (80-100); Monocytes % (Auto) 10 % (0-12); Neutrophils # (Auto) 5.5 Thou/mm3 (1.8-7.7); Neutrophils % (Auto) 57 % (37-80); Nucleated Red Blood Cell % 0 /100 WBC (0); Platelet Count 228 Thou/mm3 (140-440); RDW Standard Deviation 61.6 fL (35.1-43.9); White Blood Count 9.8 Thou/mm3 (3.8-10.6)
[2024-07-14 07:11] LABS: INR 1.5 (0.9-1.3); Partial Thromboplastin Time 35.3 Seconds (22.0-36.0)
[2024-07-14 07:17] LABS: Alanine Aminotransferase 20 U/L (10-49); Albumin, Serum 2.5 gm/dL (3.5-5.0); Albumin/Globulin Ratio 0.6 (1.2-2.2); Alkaline Phosphatase 191 U/L (46-116); Anion Gap 7 (7-16); Aspartate Amino Transferase 66 U/L (0-34); BUN/Creatinine Ratio 10 Ratio (12-20); Bilirubin,Total 2.9 mg/dL (0.3-1.2); Blood Urea Nitrogen 7 mg/dL (9-23); Calcium 7.5 mg/dL (8.3-10.6); Calcium (Corrected) 8.7 mg/dL (8.5-10.1); Carbon Dioxide 23.5 mMol/L (20.0-31.0); Chloride 107 mMol/L (98-107); Creatinine (Component) 0.7 mg/dL (0.6-1.3); Estimated Creatinine Clearance 114.4 mL/min (>60); Globulin 4.2 gm/dL (2.3-3.5); Glucose 72 mg/dL (74-106); Osmolality,Calculated 270 (275-295); Potassium 3.8 mMol/L (3.4-5.1); Sodium 137 mMol/L (136-145); Total Protein 6.7 gm/dL (5.7-8.2); eGFR > 60 See Note
[2024-07-14] MEDS: FOLIC ACID 1 MG TABLET PO ×2 (08:17→20:20)
[2024-07-14] MEDS: THIAMINE 100 MG TABLET PO ×2 (08:17→20:20)
[2024-07-14] MEDS: PANTOPRAZOLE INJ 40 MG VIAL IV ×2 (08:17→20:15)
[2024-07-14] MEDS: cefTRIAXone/D5w 2gm 2 GM/50 ML BAG IV (08:45)
--- NOTE | 2024-07-14 09:44 | PD.RESPRO ---
Documentation for date of: 07/14/24 Subjective Subjective Interval history: No acute overnight events noted. Seen and examined at bedside in patient denies nausea, emesis, abdominal pain, fevers, chills. States she has not had a BM as of yet but also has been n.p.o. given that he just had an EGD done. EGD showed large grade 3 varices status post 3 bands, diffuse and severe inflammation with hemorrhage of entire stomach. Will require octreotide drip for total of 5 days (until 07/17), will advance to full liquid diet today and then 2 g sodium diet tomorrow. Counseled on importance of alcohol cessation and that his clinical picture is likely secondary to such and patient understands. Exam Vital Signs Temp Pulse Resp BP Pulse Ox O2 Del Method O2 Flow Rate 97.5 F 77 19 154/93 H 96 Room Air 3 07/14/24 08:00 07/14/24 08:00 07/14/24 08:00 07/14/24 08:00 07/14/24 08:00 07/14/24 08:00 07/14/24 08:00 Narrative Exam General: AOx3, no acute distress, able to speak full sentences HEENT: NC/AT, mucous membranes moist, bilateral sclera anicteric Cardiovascular: regular rate and rhythm, S1/S2 present, no murmurs appreciated Pulmonary: clear to auscultation bilaterally, no rales/rhonchi/wheezes Abdominal: mildly distended, tender to palpation, soft, rebound/guarding, normal bowel sounds present Musculoskeletal: normal ROM, no peripheral edema Skin: spider angiomas on chest, warm and dry, intact, no rashes Neuro: CN II-XII intact, no focal deficits Objective Labs 07/14/24 05:00 07/14/24 05:00 Labs: Laboratory Results - last 24 hr 07/14/24 05:00 WBC 9.8 RBC 3.20 L Hgb 9.4 L Hct 28.2 L MCV 88 MCH 29.4 MCHC 33.3 RDW Std Deviation 61.6 H Plt Count 228 Neut % (Auto) 57 Lymph % (Auto) 26 [place] % (Auto) 10 Eos % (Auto) 6 Baso % (Auto) 1 Neut # (Auto) 5.5 Lymph # (Auto) 2.5 [place] # (Auto) 1.0 H Eos # (Auto) 0.6 H Baso # (Auto) 0.1 Immature Gran # (Auto) 0.03 H Absolute Nucleated RBC 0.00 Immature Gran % 0 Nucleated RBC % 0 PT 16.0 H INR 1.5 H APTT 35.3 Sodium 137 Potassium 3.8 Chloride 107 Carbon Dioxide 23.5 Anion Gap 7 BUN 7 L Creatinine 0.7 Estim Creat Clear Calc 114.4 eGFR > 60 BUN/Creatinine Ratio 10 L Glucose 72 L Calculated Osmolality 270 L Calcium 7.5 L Corrected Calcium 8.7 Total Bilirubin 2.9 H D AST 66 H ALT 20 Alkaline Phosphatase 191 H Total Protein 6.7 Albumin 2.5 L Globulin 4.2 H Albumin/Globulin Ratio 0.6 L Quality Measures Quality Measures none Assessment & Plan Assessment Current Active Medications: Generic Name Dose Route Start Last Admin Trade Name Freq PRN Reason Stop Dose Admin Acetaminophen 650 mg 07/12/24 22:09 07/13/24 20:26 Acetaminophen 325 Mg Tablet PO 08/11/24 22:08 650 mg Q6H PRN Administration Fever >100.3 or pain Folic Acid 1 mg 07/13/24 09:00 07/14/24 08:17 Folic Acid 1 Mg Tablet PO 07/18/24 08:59 1 mg BID ELIDA Administration Octreotide Acetate 1,000 mcg/ 102 mls @ 5.1 mls/hr 07/13/24 16:00 07/13/24 15:20 Sodium Chloride IV 07/17/24 20:00 50 mcg/hr .Q20H ELIDA 5.1 mls/hr Administration Protocol 50 MCG/HR Ceftriaxone Sodium/Dextrose 2 gm in 50 mls @ 100 mls/hr 07/14/24 09:00 07/14/24 08:45 Rocephin/D5w 2gm IV 07/20/24 08:59 100 mls/hr QDAY ELIDA Administration Lorazepam 0.5 mg 07/13/24 08:22 Lorazepam 2 Mg/Ml Vial IV 07/18/24 08:21 Q2HR PRN CIWA SCORE 8-13 Lorazepam 1 mg 07/13/24 08:22 Lorazepam 2 Mg/Ml Vial IV 07/18/24 08:21 Q2HR PRN CIWA SCORE 14-19 Lorazepam 2 mg 07/13/24 08:22 Lorazepam 2 Mg/Ml Vial IV 07/18/24 08:21 Q2HR PRN CIWA SCORE 20-25 Lorazepam 2 mg 07/13/24 08:22 Lorazepam 2 Mg/Ml Vial IVP X1 PRN Breakthrough Agitation Ondansetron HCl 4 mg 07/12/24 22:09 Ondansetron Inj 2 Mg/Ml Inj 2 Ml IV 08/11/24 22:08 Q6H PRN NAUSEA OR VOMITING Protocol Pantoprazole Sodium 40 mg 07/13/24 09:00 07/14/24 08:17 Pantoprazole Inj 40 Mg Vial IV 08/12/24 08:59 40 mg BID ELIDA Administration Thiamine HCl 100 mg 07/13/24 09:00 07/14/24 08:17 Thiamine 100 Mg Tablet PO 07/18/24 08:59 100 mg BID ELIDA Administration Plan Yusef Moy is a 44-year-old male with past medical history of alcohol use disorder who presented to the ED for multiple episodes of bloody emesis and black tarry stools. He typically drinks a 12 pack every 1-[address] Mcneal was consulted. Patient admitted for management of GI bleed in setting of cirhosis. #GI bleed in setting of #Decompensated liver cirhosis #History of alcohol use disorder #Grade 3 esophageal varices #Hemorrhagic gastritis #Hyperbilirubinemia #Coagulopathy Drinks one 12 pack every other day for couple of years. Presents with multiple episodes of bloody emesis and black tarry stools. Hb 6.8 and status-post 2 units pRBC that improved to 8.9. plts 292, AST mildly elevated 74, ALT 23, ALP elevated 223, ammonia 14, bilirubin 2.2, PT 15.6, INR 1.5, PTT 30.5. CT A/P showed cirrhosis with mild ascites, varicies. Doppler U/S negative for DVT. Maddrey score: 18.5, good prognosis. No benefit from steroids. Child-Wong Class B, 8 points. MELD-Na: 15 points (<2% 90 day mortality) EGD on 07/13: Large grade 3 varices status post 3 bands, diffuse and severe inflammation with hemorrhage of entire stomach ? GI Dr. Mcneal consulted, appreciate recommendations ? Octreotide infusion for 5 days until 07/17 ? IV Pantoprazole 40 mg BID ? Daily CBC, transfuse if Hb <7 ? Hold NSAIDs, antiplatelets #Ascites Abdominal ultrasound showed minimal ascitic fluid so paracentesis would not be done. ? Ceftriaxone 2 g IV daily for SBP Hospital management: Disposition: octreotide drip until 07/17 Diet: full liquid diet today Lines: PIV DVT prophylaxis: SCDs GI prophylaxis: pantoprazole 40 mg IV BID CODE STATUS: full code ----- Plan discussed with attending physician Dr. Jeevan Merida MD PGY-1 Internal Medicine Attending Provider Attestation/Addendum I have discussed and was present for the essential components of the history, physical examination, diagnosis, and treatment plan with the resident. I agree with the patient's care as documented by the resident and amended herein by me. Jad Chew, DO. Patient seen and evaluated this AM. No acute events overnight, vital signs stable, patient afebrile. Significant labs include a hemoglobin 9.4, stable, CMP largely unremarkable, T. bili 2.9. Will continue octreotide until 07/17 per gastroenterology recommendations, will advance diet to full liquid diet today, did have a conversation about complete alcohol cessation and the severity of the patient's condition in which she understood. Of note, the patient did not want his family to know about his condition and so we had them leave the room at time of bedside visit this morning when we discussed the patient's case with him. Although this document has been carefully reviewed, there may still be some phonetic and other typographical errors. These errors are purely grammatical due to imperfections in the software program and should not be construed in any way to compromise the substance of the patient's medical care during this visit.
[2024-07-14] MEDS: OCTREOTIDE ACET INJ 1,000 MCG in SODIUM CHLORIDE 0.9% 100 ML 5.1 MCG IV (13:54)
--- NOTE | 2024-07-14 15:58 | PC.SS ---
Patient is alert/oriented. Patient is Beninese speaking only. [employer] Helper line used. Patient was able to verify demographics. Patient resides with his mother. Patient was admitted for gi bleed. Patient states he has hx: alcohol abuse. Patient last drink was last weekend. Patient had an EGD yesterday. Patient states he's never been to any substance abuse rehab for in patient services or out patient. Patient states prior to hospitalization he was independent with ADL's. He has previously been to [facility] but no assigned PCP. Patient is open to getting established at [facility] upon discharge. Pharmacy: [facility]. Alt medical decision maker: Anna Berg, . D/c plan is to return home.
[2024-07-14] MEDS: MG HYD/AL HYD/SIME (Maalox Reg) SUSP 30 ML UDC PO (16:30)
--- NOTE | 2024-07-14 22:31 | ESPR_ITS ---
Documentation for date of: 07/14/24 Subjective Subjective Interval history: Patient evaluated Hemoglobin hematocrit 9.4 and 28.2 Patient status post band ligation of the esophageal varices in total, 3 bands were put in Exam Vital Signs Temp Pulse Resp BP Pulse Ox O2 Del Method O2 Flow Rate 98.2 F 87 14 130/88 H 95 Room Air 3 07/14/24 20:00 07/14/24 20:00 07/14/24 20:00 07/14/24 20:00 07/14/24 20:00 07/14/24 20:00 07/14/24 08:00 Objective Labs 07/14/24 05:00 07/14/24 05:00 Labs: Laboratory Results - last 24 hr 07/14/24 05:00 WBC 9.8 RBC 3.20 L Hgb 9.4 L Hct 28.2 L MCV 88 MCH 29.4 MCHC 33.3 RDW Std Deviation 61.6 H Plt Count 228 Neut % (Auto) 57 Lymph % (Auto) 26 [place] % (Auto) 10 Eos % (Auto) 6 Baso % (Auto) 1 Neut # (Auto) 5.5 Lymph # (Auto) 2.5 [place] # (Auto) 1.0 H Eos # (Auto) 0.6 H Baso # (Auto) 0.1 Immature Gran # (Auto) 0.03 H Absolute Nucleated RBC 0.00 Immature Gran % 0 Nucleated RBC % 0 PT 16.0 H INR 1.5 H APTT 35.3 Sodium 137 Potassium 3.8 Chloride 107 Carbon Dioxide 23.5 Anion Gap 7 BUN 7 L Creatinine 0.7 Estim Creat Clear Calc 114.4 eGFR > 60 BUN/Creatinine Ratio 10 L Glucose 72 L Calculated Osmolality 270 L Calcium 7.5 L Corrected Calcium 8.7 Total Bilirubin 2.9 H D AST 66 H ALT 20 Alkaline Phosphatase 191 H Total Protein 6.7 Albumin 2.5 L Globulin 4.2 H Albumin/Globulin Ratio 0.6 L Impressions Impression: Acute posthemorrhagic anemia Esophageal variceal band ligation On octreotide drip to continue Assessment & Plan A&P Narrative # Melena most likely upper GI bleed in the setting of cirrhotic liver disease esophageal varices or hypertensive portal gastropathy with mucosal oozing of blood is the most likely differential diagnosis Plan N.p.o. Octreotide 50 mcg IV push and then 50 mcg/h infusion IV Protonix Serial CBC Consent obtained for fiberoptic esophagogastroduodenoscopy with possible biopsy possible therapeutic intervention under intravenous moderate sedation Advised complete abstinence from alcohol Thank you very much for the opportunity to participate in care of this patient Time Spent With Patient Time: Total time spent is greater than 50% in coordination of care (as documented) at patient's floor/unit and/or counseling patient:
[2024-07-15] VITALS (7 sets, daily range): BP systolic 126–145; BP diastolic 75–89; PULSE 72–93; RESP 15–95; TEMP 36.4–36.9; O2SAT 93–98; BMI 21.2
[2024-07-15 06:26] LABS: Basophils # (Auto) 0.1 Thou/mm3 (0.0-0.2); Basophils % (Auto) 1 % (0-2.5); Eosinophils # (Auto) 0.6 Thou/mm3 (0.0-0.5); Eosinophils % (Auto) 6 % (0-10); Hematocrit 27.5 % (41.0-53.0); Hemoglobin 9.1 g/dL (13.5-16.0); Immature Granulocytes % (Auto) 0 % (0-0); Immature Granulocytes Auto 0.02 Thou/mm3 (0.00-0.00); Lymphocytes # (Auto) 2.6 Thou/mm3 (1.0-4.8); Lymphocytes % (Auto) 27 % (10-50); Mean Corpuscular HGB Conc 33.1 g/dl (31.0-37.0); Mean Corpuscular Hemoglobin 29.2 pg (25.0-35.0); Mean Corpuscular Volume 88 fL (80-100); Monocytes # (Auto) 1.2 Thou/mm3 (0.0-0.8); Monocytes % (Auto) 12 % (0-12); Neutrophils # (Auto) 5.4 Thou/mm3 (1.8-7.7); Neutrophils % (Auto) 55 % (37-80); Nucleated Red Blood Cell % 0 /100 WBC (0); Platelet Count 243 Thou/mm3 (140-440); RDW Standard Deviation 59.5 fL (35.1-43.9); Red Blood Count 3.12 Miln/mm3 (4.50-5.90); White Blood Count 9.8 Thou/mm3 (3.8-10.6)
[2024-07-15 07:02] LABS: Alanine Aminotransferase 18 U/L (10-49); Albumin, Serum 2.4 gm/dL (3.5-5.0); Albumin/Globulin Ratio 0.5 (1.2-2.2); Alkaline Phosphatase 178 U/L (46-116); Anion Gap 7 (7-16); Aspartate Amino Transferase 55 U/L (0-34); BUN/Creatinine Ratio 6 Ratio (12-20); Bilirubin,Total 2.3 mg/dL (0.3-1.2); Blood Urea Nitrogen < 5 mg/dL (9-23); Calcium 7.3 mg/dL (8.3-10.6); Calcium (Corrected) 8.6 mg/dL (8.5-10.1); Carbon Dioxide 22.6 mMol/L (20.0-31.0); Chloride 103 mMol/L (98-107); Creatinine (Component) 0.8 mg/dL (0.6-1.3); Estimated Creatinine Clearance 96.5 mL/min (>60); Globulin 4.4 gm/dL (2.3-3.5); Glucose 192 mg/dL (74-106); Osmolality,Calculated 268 (275-295); Potassium 3.6 mMol/L (3.4-5.1); Sodium 133 mMol/L (136-145); Total Protein 6.8 gm/dL (5.7-8.2); eGFR > 60 See Note
[2024-07-15] MEDS: FOLIC ACID 1 MG TABLET PO ×2 (08:05→20:50)
[2024-07-15] MEDS: PANTOPRAZOLE INJ 40 MG VIAL IV ×2 (08:05→20:50)
[2024-07-15] MEDS: THIAMINE 100 MG TABLET PO ×2 (08:05→20:50)
[2024-07-15] MEDS: cefTRIAXone/D5w 2gm 2 GM/50 ML BAG IV (08:06)
--- NOTE | 2024-07-15 09:47 | PC.SS ---
SS follow up note: patient is on Octreiotide, end date on 07/17. Patient will discharge home once medically cleared.
[2024-07-15] MEDS: OCTREOTIDE ACET INJ 1,000 MCG in SODIUM CHLORIDE 0.9% 100 ML 5.1 MCG IV (10:05)
--- NOTE | 2024-07-15 11:57 | ESPR_ITS ---
Documentation for date of: 07/15/24 Subjective Subjective Interval history: No acute overnight events noted. Seen and examined at bedside and patient does not have any complaints, including abdominal pain, nausea, vomiting, bloody bowel movements, fever, or chills. Also stats that sore throat S/P EGD improved after Maalox. Remains on octreotide drip and is to finish on 07/17. Vital signs remained stable, hemoglobin stable, total bilirubin improving, LFTs improving, otherwise labs unremarkable. Exam Vital Signs Temp Pulse Resp BP Pulse Ox O2 Del Method O2 Flow Rate 97.8 F 75 15 145/86 H 95 Room Air 3 07/15/24 08:00 07/15/24 08:00 07/15/24 08:00 07/15/24 08:00 07/15/24 08:00 07/15/24 08:00 07/14/24 08:00 Narrative Exam General: AOx3, no acute distress, able to speak full sentences HEENT: NC/AT, mucous membranes moist, bilateral sclera anicteric Cardiovascular: regular rate and rhythm, S1/S2 present, no murmurs appreciated Pulmonary: clear to auscultation bilaterally, no rales/rhonchi/wheezes Abdominal: mildly distended, tender to palpation, soft, rebound/guarding, normal bowel sounds present Musculoskeletal: normal ROM, no peripheral edema Skin: spider angiomas on chest, warm and dry, intact, no rashes Neuro: CN II-XII intact, no focal deficits Objective Labs 07/15/24 04:57 07/15/24 04:57 Labs: Laboratory Results - last 24 hr 07/15/24 04:57 WBC 9.8 RBC 3.12 L Hgb 9.1 L Hct 27.5 L MCV 88 MCH 29.2 MCHC 33.1 RDW Std Deviation 59.5 H Plt Count 243 Neut % (Auto) 55 Lymph % (Auto) 27 [place] % (Auto) 12 Eos % (Auto) 6 Baso % (Auto) 1 Neut # (Auto) 5.4 Lymph # (Auto) 2.6 [place] # (Auto) 1.2 H Eos # (Auto) 0.6 H Baso # (Auto) 0.1 Immature Gran # (Auto) 0.02 H Absolute Nucleated RBC 0.00 Immature Gran % 0 Nucleated RBC % 0 Sodium 133 L Potassium 3.6 Chloride 103 Carbon Dioxide 22.6 Anion Gap 7 BUN < 5 L Creatinine 0.8 Estim Creat Clear Calc 96.5 eGFR > 60 BUN/Creatinine Ratio 6 L Glucose 192 H D Calculated Osmolality 268 L Calcium 7.3 L Corrected Calcium 8.6 Total Bilirubin 2.3 H D AST 55 H ALT 18 Alkaline Phosphatase 178 H Total Protein 6.8 Albumin 2.4 L Globulin 4.4 H Albumin/Globulin Ratio 0.5 L Quality Measures Quality Measures none Assessment & Plan Assessment Current Active Medications: Generic Name Dose Route Start Last Admin Trade Name Freq PRN Reason Stop Dose Admin Acetaminophen 650 mg 07/12/24 22:09 07/13/24 20:26 Acetaminophen 325 Mg Tablet PO 08/11/24 22:08 650 mg Q6H PRN Administration Fever >100.3 or pain Folic Acid 1 mg 07/13/24 09:00 07/15/24 08:05 Folic Acid 1 Mg Tablet PO 07/18/24 08:59 1 mg BID ELIDA Administration Octreotide Acetate 1,000 mcg/ 102 mls @ 5.1 mls/hr 07/13/24 16:00 07/15/24 10:05 Sodium Chloride IV 07/17/24 20:00 50 mcg/hr .Q20H ELIDA 5.1 mls/hr Administration Protocol 50 MCG/HR Ceftriaxone Sodium/Dextrose 2 gm in 50 mls @ 100 mls/hr 07/14/24 09:00 07/15/24 08:06 Rocephin/D5w 2gm IV 07/20/24 08:59 100 mls/hr QDAY ELIDA Administration Lorazepam 0.5 mg 07/13/24 08:22 Lorazepam 2 Mg/Ml Vial IV 07/18/24 08:21 Q2HR PRN CIWA SCORE 8-13 Lorazepam 1 mg 07/13/24 08:22 Lorazepam 2 Mg/Ml Vial IV 07/18/24 08:21 Q2HR PRN CIWA SCORE 14-19 Lorazepam 2 mg 07/13/24 08:22 Lorazepam 2 Mg/Ml Vial IV 07/18/24 08:21 Q2HR PRN CIWA SCORE 20-25 Lorazepam 2 mg 07/13/24 08:22 Lorazepam 2 Mg/Ml Vial IVP X1 PRN Breakthrough Agitation Ondansetron HCl 4 mg 07/12/24 22:09 Ondansetron Inj 2 Mg/Ml Inj 2 Ml IV 08/11/24 22:08 Q6H PRN NAUSEA OR VOMITING Protocol Pantoprazole Sodium 40 mg 07/13/24 09:00 07/15/24 08:05 Pantoprazole Inj 40 Mg Vial IV 08/12/24 08:59 40 mg BID ELIDA Administration Thiamine HCl 100 mg 07/13/24 09:00 07/15/24 08:05 Thiamine 100 Mg Tablet PO 07/18/24 08:59 100 mg BID ELIDA Administration Plan Yusef Moy is a 44-year-old male with past medical history of alcohol use disorder who presented to the ED for multiple episodes of bloody emesis and black tarry stools. He typically drinks a 12 pack every 1-[address] Mcneal was consulted. Patient admitted for management of GI bleed in setting of cirhosis. #GI bleed in setting of #Decompensated liver cirhosis #History of alcohol use disorder #Grade 3 esophageal varices #Hemorrhagic gastritis #Hyperbilirubinemia #Coagulopathy Drinks one 12 pack every other day for couple of years. Presents with multiple episodes of bloody emesis and black tarry stools. Hb 6.8 and status-post 2 units pRBC that improved to 8.9. plts 292, AST mildly elevated 74, ALT 23, ALP elevated 223, ammonia 14, bilirubin 2.2, PT 15.6, INR 1.5, PTT 30.5. CT A/P showed cirrhosis with mild ascites, varicies. Doppler U/S negative for DVT. Maddrey score: 18.5, good prognosis. No benefit from steroids. Child-Wong Class B, 8 points. MELD-Na: 15 points (<2% 90 day mortality) EGD on 07/13: Large grade 3 varices status post 3 bands, diffuse and severe inflammation with hemorrhage of entire stomach ? GI Dr. Mcneal consulted, appreciate recommendations ? Octreotide infusion for 5 days until 07/17 ? IV Pantoprazole 40 mg BID ? Daily CBC, transfuse if Hb <7 ? Hold NSAIDs, antiplatelets #Ascites Abdominal ultrasound showed minimal ascitic fluid so paracentesis would not be done. ? Ceftriaxone 2 g IV daily for SBP (07/14-) Hospital management: Disposition: octreotide drip until 07/17 Diet: full liquid diet today Lines: PIV DVT prophylaxis: SCDs GI prophylaxis: pantoprazole 40 mg IV BID CODE STATUS: full code ----- Plan discussed with attending physician Dr. Jeevan Merida MD PGY-1 Internal Medicine Attending Provider Attestation/Addendum I have discussed and was present for the essential components of the history, physical examination, diagnosis, and treatment plan with the resident. I agree with the patient's care as documented by the resident and amended herein by me. Jad Chew, DO. Patient seen and evaluated this AM. Vital signs stable, patient afebrile, no acute events overnight. Will continue octreotide drip until 17 July per gastroenterology recommendations and advance the patient's diet as tolerated. Patient will need hepatobiliary follow-up and complete cessation from alcohol use, this was thoroughly explained to the patient on multiple occasions and he states he understands. Although this document has been carefully reviewed, there may still be some phonetic and other typographical errors. These errors are purely grammatical due to imperfections in the software program and should not be construed in any way to compromise the substance of the patient's medical care during this visit.
--- NOTE | 2024-07-15 21:04 | ESPR_ITS ---
Documentation for date of: 07/15/24 Subjective Subjective Interval history: Hemoglobin hematocrit 9.1 and 27.5 Patient status post band ligation of the esophageal varices 3 bands were put in Octreotide is continuing Exam Vital Signs Temp Pulse Resp BP Pulse Ox O2 Del Method O2 Flow Rate 98.4 F 93 17 134/83 H 94 L Room Air 3 07/15/24 20:00 07/15/24 20:00 07/15/24 20:00 07/15/24 20:00 07/15/24 20:00 07/15/24 20:00 07/15/24 12:00 Objective Labs 07/15/24 04:57 07/15/24 04:57 Labs: Laboratory Results - last 24 hr 07/15/24 04:57 WBC 9.8 RBC 3.12 L Hgb 9.1 L Hct 27.5 L MCV 88 MCH 29.2 MCHC 33.1 RDW Std Deviation 59.5 H Plt Count 243 Neut % (Auto) 55 Lymph % (Auto) 27 [place] % (Auto) 12 Eos % (Auto) 6 Baso % (Auto) 1 Neut # (Auto) 5.4 Lymph # (Auto) 2.6 [place] # (Auto) 1.2 H Eos # (Auto) 0.6 H Baso # (Auto) 0.1 Immature Gran # (Auto) 0.02 H Absolute Nucleated RBC 0.00 Immature Gran % 0 Nucleated RBC % 0 Sodium 133 L Potassium 3.6 Chloride 103 Carbon Dioxide 22.6 Anion Gap 7 BUN < 5 L Creatinine 0.8 Estim Creat Clear Calc 96.5 eGFR > 60 BUN/Creatinine Ratio 6 L Glucose 192 H D Calculated Osmolality 268 L Calcium 7.3 L Corrected Calcium 8.6 Total Bilirubin 2.3 H D AST 55 H ALT 18 Alkaline Phosphatase 178 H Total Protein 6.8 Albumin 2.4 L Globulin 4.4 H Albumin/Globulin Ratio 0.5 L Impressions Impression: Esophageal varices requiring band ligation Upper GI bleed secondary to 1 Continue octreotide infusion and follow CBC Assessment & Plan A&P Narrative # Melena most likely upper GI bleed in the setting of cirrhotic liver disease esophageal varices or hypertensive portal gastropathy with mucosal oozing of blood is the most likely differential diagnosis Plan N.p.o. Octreotide 50 mcg IV push and then 50 mcg/h infusion IV Protonix Serial CBC Consent obtained for fiberoptic esophagogastroduodenoscopy with possible biopsy possible therapeutic intervention under intravenous moderate sedation Advised complete abstinence from alcohol Thank you very much for the opportunity to participate in care of this patient Time Spent With Patient Time: Total time spent is greater than 50% in coordination of care (as documented) at patient's floor/unit and/or counseling patient:
[2024-07-16] VITALS (10 sets, daily range): BP systolic 113–128; BP diastolic 69–87; PULSE 64–92; RESP 16–96; TEMP 36.5–36.9; O2SAT 94–96; BMI 20.9
[2024-07-16] MEDS: OCTREOTIDE ACET INJ 1,000 MCG in SODIUM CHLORIDE 0.9% 100 ML 5.1 MCG IV (05:06)
--- NOTE | 2024-07-16 07:06 | PD.HHPROG ---
Documentation for date of: 07/16/24 Subjective - Hospitalist Subjective Interval history: No acute events ovn, patient has no subjective complaints. CMP ordered, not ordered for this morning. Exam Vital Signs Temp Pulse Resp BP Pulse Ox O2 Del Method O2 Flow Rate 98.0 F 85 18 113/80 94 L Room Air 3 07/16/24 04:00 07/16/24 04:03 07/16/24 04:03 07/16/24 04:00 07/16/24 04:00 07/16/24 04:00 07/15/24 12:00 Objective - Hospitalist Labs Diagram: 07/15/24 04:57 07/15/24 04:57 Assessment & Plan Plan: Yusef Moy is a 44-year-old male with past medical history of alcohol use disorder who presented to the ED for multiple episodes of bloody emesis and black tarry stools. He typically drinks a 12 pack every 1-[address] Mcneal was consulted. Patient admitted for management of GI bleed in setting of cirhosis. #GI bleed in setting of #Decompensated liver cirhosis #History of alcohol use disorder #Grade 3 esophageal varices #Hemorrhagic gastritis #Hyperbilirubinemia #Coagulopathy Maddrey score: 18.5, good prognosis. No benefit from steroids. Child-Wong Class B, 8 points. MELD-Na: 15 points (<2% 90 day mortality) EGD on 07/13: Large grade 3 varices status post 3 bands, diffuse and severe inflammation with hemorrhage of entire stomach Plan: Will DC ceftriaxone, decrease Protonix to 40 mg IV daily and continue octreotide until 07/17, can be discharged after that dose #Ascites CTM *Patient has been strenuously counseled on the need for alcohol cessation and the need to follow-up with hepatobiliary specialist for continued monitoring and possible transplant later on. The patient understands Hospital management: Disposition: octreotide drip until 07/17 Diet: Regular Lines: PIV DVT prophylaxis: SCDs GI prophylaxis: pantoprazole 40 mg IV daily CODE STATUS: full code Time Spent with Patient Time: Total time spent is greater than 50% in coordination of care (as documented) at patient's floor/unit and/or counseling patient: Time with patient: 25 - 35 minutes Reason for Continued Stay Reason for continued stay: other Quality Measures Quality Measures none
[2024-07-16] MEDS: FOLIC ACID 1 MG TABLET PO ×2 (08:40→19:59)
[2024-07-16] MEDS: PANTOPRAZOLE INJ 40 MG VIAL IV (08:40)
[2024-07-16] MEDS: THIAMINE 100 MG TABLET PO ×2 (08:40→19:59)
[2024-07-16 09:15] LABS: Alanine Aminotransferase 20 U/L (10-49); Albumin, Serum 2.8 gm/dL (3.5-5.0); Albumin/Globulin Ratio 0.6 (1.2-2.2); Alkaline Phosphatase 194 U/L (46-116); Anion Gap 5 (7-16); Aspartate Amino Transferase 54 U/L (0-34); BUN/Creatinine Ratio 9 Ratio (12-20); Bilirubin,Total 2.3 mg/dL (0.3-1.2); Blood Urea Nitrogen 7 mg/dL (9-23); Calcium 7.7 mg/dL (8.3-10.6); Calcium (Corrected) 8.7 mg/dL (8.5-10.1); Carbon Dioxide 23.4 mMol/L (20.0-31.0); Chloride 104 mMol/L (98-107); Creatinine (Component) 0.8 mg/dL (0.6-1.3); Estimated Creatinine Clearance 94.8 mL/min (>60); Globulin 4.8 gm/dL (2.3-3.5); Glucose 132 mg/dL (74-106); Osmolality,Calculated 264 (275-295); Sodium 132 mMol/L (136-145); Total Protein 7.6 gm/dL (5.7-8.2); eGFR > 60 See Note
--- NOTE | 2024-07-16 11:50 | PD.IMPROG ---
Documentation for date of: 07/16/24 Subjective Subjective Interval history: Hemoglobin hematocrit 9.1 and 27.5 No signs of any active bleeding at this moment Exam Vital Signs Temp Pulse Resp BP Pulse Ox O2 Del Method O2 Flow Rate 97.7 F 64 16 126/78 96 Room Air 3 07/16/24 07:26 07/16/24 07:26 07/16/24 07:26 07/16/24 07:26 07/16/24 07:26 07/16/24 07:26 07/15/24 12:00 Objective Labs 07/15/24 04:57 07/16/24 08:25 Labs: Laboratory Results - last 24 hr 07/16/24 08:25 Sodium 132 L Potassium 4.0 Chloride 104 Carbon Dioxide 23.4 Anion Gap 5 L BUN 7 L Creatinine 0.8 Estim Creat Clear Calc 94.8 eGFR > 60 BUN/Creatinine Ratio 9 L Glucose 132 H D Calculated Osmolality 264 L Calcium 7.7 L Corrected Calcium 8.7 Total Bilirubin 2.3 H AST 54 H ALT 20 Alkaline Phosphatase 194 H Total Protein 7.6 Albumin 2.8 L Globulin 4.8 H Albumin/Globulin Ratio 0.6 L Impressions Impression: Status post band ligation of the esophageal varices Continue current management Assessment & Plan A&P Narrative # Melena most likely upper GI bleed in the setting of cirrhotic liver disease esophageal varices or hypertensive portal gastropathy with mucosal oozing of blood is the most likely differential diagnosis Plan N.p.o. Octreotide 50 mcg IV push and then 50 mcg/h infusion IV Protonix Serial CBC Consent obtained for fiberoptic esophagogastroduodenoscopy with possible biopsy possible therapeutic intervention under intravenous moderate sedation Advised complete abstinence from alcohol Thank you very much for the opportunity to participate in care of this patient Time Spent With Patient Time: Total time spent is greater than 50% in coordination of care (as documented) at patient's floor/unit and/or counseling patient:
--- NOTE | 2024-07-16 13:43 | PC.SS ---
SS follow up note; Patient will complete Octriotide drip tomorrow. Patient will discharge home when medically cleared.
--- NOTE | 2024-07-16 13:45 | PD.HHPROG ---
Documentation for date of: 07/16/24 Exam Vital Signs Temp Pulse Resp BP Pulse Ox O2 Del Method O2 Flow Rate 98.4 F 85 18 126/73 95 Room Air 3 07/16/24 11:49 07/16/24 11:49 07/16/24 11:49 07/16/24 11:49 07/16/24 11:49 07/16/24 07:26 07/15/24 12:00 Objective - Hospitalist Labs Diagram: 07/15/24 04:57 07/16/24 08:25 Labs: Laboratory Results - last 24 hr 07/16/24 08:25 Sodium 132 L Potassium 4.0 Chloride 104 Carbon Dioxide 23.4 Anion Gap 5 L BUN 7 L Creatinine 0.8 Estim Creat Clear Calc 94.8 eGFR > 60 BUN/Creatinine Ratio 9 L Glucose 132 H D Calculated Osmolality 264 L Calcium 7.7 L Corrected Calcium 8.7 Total Bilirubin 2.3 H AST 54 H ALT 20 Alkaline Phosphatase 194 H Total Protein 7.6 Albumin 2.8 L Globulin 4.8 H Albumin/Globulin Ratio 0.6 L Assessment & Plan Plan: Yusef Moy is a 44-year-old male with past medical history of alcohol use disorder who presented to the ED for multiple episodes of bloody emesis and black tarry stools. He typically drinks a 12 pack every 1-[address] Mcneal was consulted. Patient admitted for management of GI bleed in setting of cirhosis. #GI bleed in setting of #Decompensated liver cirhosis #History of alcohol use disorder #Grade 3 esophageal varices #Hemorrhagic gastritis #Hyperbilirubinemia #Coagulopathy Maddrey score: 18.5, good prognosis. No benefit from steroids. Child-Wong Class B, 8 points. MELD-Na: 15 points (<2% 90 day mortality) EGD on 07/13: Large grade 3 varices status post 3 bands, diffuse and severe inflammation with hemorrhage of entire stomach Plan: Will DC ceftriaxone, decrease Protonix to 40 mg IV daily and continue octreotide until 07/17, can be discharged after that dose #Ascites CTM *Patient has been strenuously counseled on the need for alcohol cessation and the need to follow-up with hepatobiliary specialist for continued monitoring and possible transplant later on. The patient understands Hospital management: Disposition: octreotide drip until 07/17 Diet: Regular Lines: PIV DVT prophylaxis: SCDs GI prophylaxis: pantoprazole 40 mg IV daily CODE STATUS: full code Time Spent with Patient Time: Total time spent is greater than 50% in coordination of care (as documented) at patient's floor/unit and/or counseling patient: Quality Measures Quality Measures none
[2024-07-16] MEDS: ACETAMINOPHEN 325 MG TABLET 650 MG PO (20:45)
[2024-07-17] VITALS (7 sets, daily range): BP systolic 113–128; BP diastolic 69–78; PULSE 78–98; RESP 13–18; TEMP 36.6–37.7; O2SAT 93–97
[2024-07-17] MEDS: OCTREOTIDE ACET INJ 1,000 MCG in SODIUM CHLORIDE 0.9% 100 ML 5.1 MCG IV (03:10)
[2024-07-17 05:22] LABS: Basophils # (Auto) 0.1 Thou/mm3 (0.0-0.2); Basophils % (Auto) 1 % (0-2.5); Eosinophils # (Auto) 0.4 Thou/mm3 (0.0-0.5); Eosinophils % (Auto) 4 % (0-10); Hematocrit 27.5 % (41.0-53.0); Immature Granulocytes % (Auto) 0 % (0-0); Immature Granulocytes Auto 0.03 Thou/mm3 (0.00-0.00); Lymphocytes # (Auto) 2.2 Thou/mm3 (1.0-4.8); Lymphocytes % (Auto) 21 % (10-50); Mean Corpuscular HGB Conc 32.7 g/dl (31.0-37.0); Mean Corpuscular Hemoglobin 29.2 pg (25.0-35.0); Mean Corpuscular Volume 89 fL (80-100); Monocytes # (Auto) 1.1 Thou/mm3 (0.0-0.8); Monocytes % (Auto) 10 % (0-12); Neutrophils # (Auto) 6.4 Thou/mm3 (1.8-7.7); Neutrophils % (Auto) 63 % (37-80); Nucleated Red Blood Cell % 0 /100 WBC (0); Platelet Count 208 Thou/mm3 (140-440); RDW Standard Deviation 60.5 fL (35.1-43.9); Red Blood Count 3.08 Miln/mm3 (4.50-5.90); White Blood Count 10.2 Thou/mm3 (3.8-10.6)
[2024-07-17 05:32] LABS: Alanine Aminotransferase 17 U/L (10-49); Albumin, Serum 2.7 gm/dL (3.5-5.0); Albumin/Globulin Ratio 0.6 (1.2-2.2); Alkaline Phosphatase 175 U/L (46-116); Anion Gap 6 (7-16); Aspartate Amino Transferase 49 U/L (0-34); BUN/Creatinine Ratio 11 Ratio (12-20); Bilirubin,Total 2.2 mg/dL (0.3-1.2); Blood Urea Nitrogen 8 mg/dL (9-23); Calcium 7.6 mg/dL (8.3-10.6); Calcium (Corrected) 8.6 mg/dL (8.5-10.1); Carbon Dioxide 23.2 mMol/L (20.0-31.0); Chloride 105 mMol/L (98-107); Creatinine (Component) 0.7 mg/dL (0.6-1.3); Estimated Creatinine Clearance 108.3 mL/min (>60); Globulin 4.5 gm/dL (2.3-3.5); Glucose 122 mg/dL (74-106); Osmolality,Calculated 267 (275-295); Sodium 134 mMol/L (136-145); Total Protein 7.2 gm/dL (5.7-8.2); eGFR > 60 See Note
[2024-07-17] MEDS: THIAMINE 100 MG TABLET PO ×2 (09:29→20:28)
[2024-07-17] MEDS: PANTOPRAZOLE INJ 40 MG VIAL IV (09:29)
[2024-07-17] MEDS: FOLIC ACID 1 MG TABLET PO ×2 (09:29→20:28)
--- NOTE | 2024-07-17 14:37 | ESDS_ITS ---
Planned Discharge Date 07/17/24 DS: Providers Provider Date of admission: 07/12/24 21:29 Primary care physician: Physician No Primary/Family Admitting Provider: Jake Perdue MD Attending Provider on Admission: Yann Chew DO Consults: 07/12/24 21:14 Consult to Gastroenterology Stat Comment: Consulting Provider: Zita Mcneal Attending Provider on DC: Yann Chew DO Discharging Provider: Yann Chew DO Diagnosis Problem List Completed Was Problem List Reviewed/Reconciled?: Yes Hospital Course - Hospitalist Hospital Course Hospital course: Patient is a 44-year-old male with a significant past medical history of alcohol use disorder and subsequent liver cirrhosis who presented for hematemesis and black tarry stools. Patient was anemic on arrival with a hemoglobin of 6.8 likely secondary to blood loss anemia and was transfused in the emergency department. Hemoglobin remained low but stable until time of discharge. Gastroenterology was consulted and did perform an EGD on 07/13 which demonstrated grade 3 esophageal varices in which a total of 3 were banded. Gastritis with hemorrhage was also noted it was recommended the patient continue octreotide for 5 days which she completed on 07/17. We counseled the patient strenuously on the necessity for alcohol cessation and to follow-up with a hepatobiliary specialist and primary care physician in which she understood. Patient was stable, afebrile, tolerating p.o. intake and ambulatory at time of discharge home Problem list: #GI bleed in setting of #Decompensated liver cirhosis #History of alcohol use disorder #Grade 3 esophageal varices #Hemorrhagic gastritis #Hyperbilirubinemia #Coagulopathy #Ascites Time Spent with Patient Time attestation: Total time spent providing and/or coordinating discharge services: Time spent: Greater than 30 minutes Discharge Results Labs Diagrams: 07/17/24 04:32 07/17/24 04:32 Labs: Short CBC 07/17/24 Range/Units 04:32 WBC 10.2 (3.8-10.6) Thou/mm3 Hgb 9.0 L (13.5-16.0) g/dL Hct 27.5 L (41.0-53.0) % Plt Count 208 D (140-440) Thou/mm3 BMP 07/17/24 04:32 Sodium 134 L Potassium 4.0 Chloride 105 Carbon Dioxide 23.2 BUN 8 L Creatinine 0.7 Glucose 122 H Calcium 7.6 L Liver Function 07/17/24 Range/Units 04:32 Total Bilirubin 2.2 H (0.3-1.2) mg/dL AST 49 H (0-34) U/L ALT 17 (10-49) U/L Alkaline Phosphatase 175 H (46-116) U/L Albumin 2.7 L (3.5-5.0) gm/dL Exam Vital Signs Temp Pulse Resp BP Pulse Ox O2 Del Method O2 Flow Rate 98.7 F 98 16 128/78 97 Room Air 3 07/17/24 12:00 07/17/24 12:00 07/17/24 12:00 07/17/24 12:00 07/17/24 12:00 07/17/24 12:00 07/15/24 12:00 Discharge Plan Plan Patient Disposition: HOME (Self Care) Prescriptions/Referrals Prescriptions/Med Rec: No Action No Known Home Medications Referrals: No Primary/Family,Physician [Primary Care Provider] - Patient/Caregiver Discharge Instructions Other Discharge Activity Instructions:: Please return to the emergency department for persistent or worsening symptoms please follow-up with your primary care provider within 7-10 days of discharge You will need complete cessation from alcohol and need to follow-up with a liver specialist for continued monitoring and care Education Materials: Bleeding Gastrointestinal, Treating Cirrhosis, Understanding Cirrhosis, ED Ascites, ED Cirrhosis Print Language: Martiniquais Stand Alone Forms: Brandy Award Info., Patient Portal Info Letter Discharge Order Discharge Orders: Discharge (Routine); Ordered 07/17/24 Ordered By: Yann Chew Quality Discharge Quality Measures none (None in setting of variceal GI bleed)
--- NOTE | 2024-07-17 15:15 | ESPR_ITS ---
Documentation for date of: 07/17/24 Subjective Subjective Interval history: Hemoglobin hematocrit 9.0 and 27.5 Patient on octreotide drip Exam Vital Signs Temp Pulse Resp BP Pulse Ox O2 Del Method O2 Flow Rate 98.7 F 98 16 128/78 97 Room Air 3 07/17/24 12:00 07/17/24 12:00 07/17/24 12:00 07/17/24 12:00 07/17/24 12:00 07/17/24 12:00 07/15/24 12:00 Objective Labs 07/17/24 04:32 07/17/24 04:32 Labs: Laboratory Results - last 24 hr 07/17/24 04:32 WBC 10.2 RBC 3.08 L Hgb 9.0 L Hct 27.5 L MCV 89 MCH 29.2 MCHC 32.7 RDW Std Deviation 60.5 H Plt Count 208 D Neut % (Auto) 63 Lymph % (Auto) 21 [place] % (Auto) 10 Eos % (Auto) 4 Baso % (Auto) 1 Neut # (Auto) 6.4 Lymph # (Auto) 2.2 [place] # (Auto) 1.1 H Eos # (Auto) 0.4 Baso # (Auto) 0.1 Immature Gran # (Auto) 0.03 H Absolute Nucleated RBC 0.00 Immature Gran % 0 Nucleated RBC % 0 Sodium 134 L Potassium 4.0 Chloride 105 Carbon Dioxide 23.2 Anion Gap 6 L BUN 8 L Creatinine 0.7 Estim Creat Clear Calc 108.3 eGFR > 60 BUN/Creatinine Ratio 11 L Glucose 122 H Calculated Osmolality 267 L Calcium 7.6 L Corrected Calcium 8.6 Total Bilirubin 2.2 H AST 49 H ALT 17 Alkaline Phosphatase 175 H Total Protein 7.2 Albumin 2.7 L Globulin 4.5 H Albumin/Globulin Ratio 0.6 L Impressions Impression: Status post band ligation of the esophageal varices Hypertensive portal gastropathy Finish 5 days of octreotide and patient can be discharged home after that Assessment & Plan A&P Narrative # Melena most likely upper GI bleed in the setting of cirrhotic liver disease esophageal varices or hypertensive portal gastropathy with mucosal oozing of blood is the most likely differential diagnosis Plan N.p.o. Octreotide 50 mcg IV push and then 50 mcg/h infusion IV Protonix Serial CBC Consent obtained for fiberoptic esophagogastroduodenoscopy with possible biopsy possible therapeutic intervention under intravenous moderate sedation Advised complete abstinence from alcohol Thank you very much for the opportunity to participate in care of this patient Time Spent With Patient Time: Total time spent is greater than 50% in coordination of care (as documented) at patient's floor/unit and/or counseling patient:
== END 2024-07-17 23:07 | disposition home or self-care (01) | DRG 280 ==
LOC: SERX 21:12 → SERHOLD 22:14 → S3NX 07-13 00:30
PROVIDERS: Nurse Practitioner Primary Care; Specialist; Student in an Organized Health Care Education/Training Program; Admitting Provider Internal Medicine; Emergency Provider Emergency Medicine; Visit Provider Student in an Organized Health Care Education/Training Program
PROC: (CPT 43239; principal; 2024-07-13 16:15)
DX: K70.31 Alcoholic cirrhosis of liver with ascites (principal); F10.10 Alcohol abuse, uncomplicated; F10.139 Alcohol abuse with withdrawal, unspecified; I85.11 Secondary esophageal varices with bleeding; K29.71 Gastritis, unspecified, with bleeding; I86.4 Gastric varices; M79.89 Other specified soft tissue disorders; K31.89 Other diseases of stomach and duodenum; D62 Acute posthemorrhagic anemia; D68.9 Coagulation defect, unspecified; R03.0 Elevated blood-pressure reading, without diagnosis of hypertension; K76.6 Portal hypertension; Z90.49 Acquired absence of other specified parts of digestive tract; Z79.899 Other long term (current) drug therapy
CPT/HCPCS: 36415; 36430; 74177; 76705; 80053; 80074; 80307; 80320; 81001; 82042; 82140; 82150; 82945; 83605; 83615; 83690; 83735; 84100; 84145; 84157; 84484; 85025; 85610; 85730; 86850; 86900; 86901; 86923; 87040; 87070; 87075; 87081; 87086; 87205; 89051; 93005; 93225; 93970; 96365; 96372; 96375; 99285; A4217; A4649; J0612; J0696; J1200; J2250; J2354; J2470; J3010; J3430; J3475; J3490; J7030; J7050; P9016; Q9967; A9270; G0480

== ENCOUNTER 2024-07-21 09:10 | Inpatient (IN) | payer MEDICAID, SELFPAY ==
[2024-07-21] VITALS (64 sets, daily range): BP systolic 73–109; BP diastolic 40–64; PULSE 71–122; RESP 11–38; TEMP 36.2–37.3; O2SAT 97–100; BMI 21.9
[2024-07-21] MEDS: SODIUM CHLORIDE 0.9% 1000 ML 1,000 ML 999 ML IV ×2 (09:57→12:56)
[2024-07-21] MEDS: ONDANSETRON INJ 2 MG/ML INJ 2 ML 4 MG IV (10:03)
[2024-07-21] MEDS: OCTREOTIDE ACET INJ 1,000 MCG in SODIUM CHLORIDE 0.9% 100 ML 5.1 MCG IV ×2 (10:06→11:47)
[2024-07-21 10:09] LABS: Basophils # (Auto) 0.1 Thou/mm3 (0.0-0.2); Basophils % (Auto) 1 % (0-2.5); Eosinophils # (Auto) 0.2 Thou/mm3 (0.0-0.5); Eosinophils % (Auto) 1 % (0-10); Hematocrit 20.2 % (41.0-53.0); Immature Granulocytes % (Auto) 0 % (0-0); Immature Granulocytes Auto 0.05 Thou/mm3 (0.00-0.00); Lymphocytes # (Auto) 3.1 Thou/mm3 (1.0-4.8); Lymphocytes % (Auto) 27 % (10-50); Mean Corpuscular HGB Conc 33.2 g/dl (31.0-37.0); Mean Corpuscular Hemoglobin 29.1 pg (25.0-35.0); Mean Corpuscular Volume 88 fL (80-100); Monocytes # (Auto) 1.2 Thou/mm3 (0.0-0.8); Monocytes % (Auto) 11 % (0-12); Neutrophils # (Auto) 6.7 Thou/mm3 (1.8-7.7); Neutrophils % (Auto) 60 % (37-80); Nucleated Red Blood Cell % 0 /100 WBC (0); Platelet Count 182 Thou/mm3 (140-440); RDW Standard Deviation 56.9 fL (35.1-43.9); White Blood Count 11.3 Thou/mm3 (3.8-10.6)
[2024-07-21] MEDS: OCTREOTIDE ACET INJ 50 mCg/ML VIAL IV (10:09)
[2024-07-21 10:16] LABS: Hemoglobin 6.7 g/dL (13.5-16.0)
[2024-07-21 10:19] LABS: INR 1.7 (0.9-1.3); Prothrombin Time 17.8 Seconds (9.0-12.2)
[2024-07-21] MEDS: PANTOPRAZOLE/NS 80MG IV PREMIX 80 MG/100 ML BAG 10 MG IV (10:22)
[2024-07-21 10:25] LABS: Lactate (Lactic Acid) 3.8 mMol/L (0.4-2.0)
[2024-07-21 10:36] LABS: Alanine Aminotransferase 18 U/L (10-49); Albumin, Serum 2.5 gm/dL (3.5-5.0); Albumin/Globulin Ratio 0.6 (1.2-2.2); Alcohol, Blood Medical < 3.0 mg/dL (0-10.0); Alkaline Phosphatase 139 U/L (46-116); Anion Gap 9 (7-16); Aspartate Amino Transferase 48 U/L (0-34); BUN/Creatinine Ratio 17 Ratio (12-20); Bilirubin,Total 1.7 mg/dL (0.3-1.2); Blood Urea Nitrogen 12 mg/dL (9-23); Calcium 7.4 mg/dL (8.3-10.6); Calcium (Corrected) 8.6 mg/dL (8.5-10.1); Carbon Dioxide 21.8 mMol/L (20.0-31.0); Chloride 104 mMol/L (98-107); Creatinine (Component) 0.7 mg/dL (0.6-1.3); Glucose 114 mg/dL (74-106); Lipase 79 U/L (12-53); Osmolality,Calculated 270 (275-295); Potassium 4.7 mMol/L (3.4-5.1); Procalcitonin 0.19 ng/ml (0.0-0.49); Sodium 135 mMol/L (136-145); Total Protein 6.5 gm/dL (5.7-8.2); Troponin I < 0.020 ng/mL (0.0-0.045); eGFR > 60 See Note
--- NOTE | 2024-07-21 10:38 | PD.EDNV ---
Nausea/Vomit./Diarrhea-RME/HPI General Chief complaint: Nausea/Vomiting/Diarrhea Stated complaint: vomiting blood since am Time Seen by Provider: 07/21/24 09:42 Arrival date/time: 07/21/24 09:10 RME / HPI RME / HPI Narrative: 44 year old male with history of cirrhosis presented to the ER with a chief complaint of vomiting blood. Per patient, he had been vomiting blood for 10 minutes and had similiar symptoms 2 weeks ago. Per patient he had a EGD on 07/13/2024 with PCP. Patient denies black stool or blood in stool. No further complaints were made. Related Data Home Medications ?Medication ?Instructions ?Recorded ?Confirmed No Known Home Medications 07/13/24 07/13/24 Allergies Allergy/AdvReac Type Severity Reaction Status Date / Time nka Allergy Uncoded 07/21/24 09:38 Review of Systems Review of Systems Systems Reviewed: All systems reviewed, normal except as documented Narrative Review of Systems: Gen: No fever, no chills, no weight loss EYES: No discharge, no visual changes, no pain HEENT: No ear pain, no congestion, no sore throat PULM: No shortness of breath, no cough, no congestion CV: No chest pain, no dyspnea on exertion, no palpitations GI: No nausea, +vomiting blood, no diarrhea, no pain, no constipation : No frequency, no urgency, no dysuria Musc/skel: No joint pain, no back pain Skin: No rash Psyc: No hallucinations, no depression Heme/Lymph: No easy bleeding or bruising tendencies Neuro: No weakness, no headache Past Medical History Past Medical History OTHER HISTORY: Positive Blood Transfusions ED Exam Narrative Physical exam: GENERAL APPEARANCE: alert and oriented x 4, well-developed, well-nourished, no acute distress HEENT: Normocephalic, atraumatic; pupils equal, round, reactive to light; EOMI; mucous membranes pink, moist; oropharynx clear NECK: Supple LUNGS: CTABL; no wheezes, no rales, no rhonchi HEART: Regular rate, regular rhythm; normal S1, S2; no murmurs ABDOMEN: mild distended; normal BS; soft, no tenderness, no guarding, no rebound; no masses, no organomegaly, no hernia BACK: no CVA tenderness EXTREMITIES: atraumatic; no edema NEUROLOGIC: awake; alert and oriented x4; cranial nerves II-XII grossly intact; no focal sensory or motor deficits PSYCHIATRIC: appropriate mood and affect SKIN: warm, dry, normal color; no rashes Course Quality Measures none Orders Category Date Time Status EKG (ED ONLY) *Do not use* NOW Care 07/21/24 09:27 Completed Insert IV NOW Care 07/21/24 09:27 Active Transfuse,blood/blood products NOW Care 07/21/24 10:28 Active Consult to Gastroenterology Stat Cons 07/21/24 10:33 Ordered EKG (ED Only) Stat Exams 07/21/24 09:27 Ordered Alcohol, Blood Medical Stat Lab 07/21/24 09:21 Completed CBC Stat Lab 07/21/24 09:21 Completed Comprehensive Metabolic Panel Stat Lab 07/21/24 09:21 Completed Drug Screen,Urine Stat Lab 07/21/24 11:18 Completed Lactate (Lactic Acid) Stat Lab 07/21/24 10:21 Completed Lipase Stat Lab 07/21/24 09:21 Completed Partial Thromboplastin Time Stat Lab 07/21/24 09:21 Completed Procalcitonin Stat Lab 07/21/24 09:21 Completed Prothrombin Time with INR Stat Lab 07/21/24 09:21 Completed Red Blood Cells Stat Lab 07/21/24 09:21 Results Troponin I Stat Lab 07/21/24 09:21 Completed Type and Screen Stat Lab 07/21/24 09:21 Results Octreotide Acet Inj [SandoSTATIN Inj] Med 07/21/24 09:50 Discontinued 50 mcg IV X1 ONE Ondansetron Inj [Zofran Inj] Med 07/21/24 09:44 Discontinued 4 mg IV X1 ONE Pantoprazole Inj [Protonix Inj] Med 07/21/24 09:27 Discontinued 80 mg IV X1 ONE Pantoprazole/Ns 80Mg IV Premix [Protonix/NS 80mg IV Med 07/21/24 09:50 Discontinued Premix] 80 mg in 100 ml IV X1 Sodium Chloride 0.9% 1000 ml [Ns] 1,000 ml Med 07/21/24 09:27 Discontinued IV 999 mls/hr Sodium Chloride 0.9% [Ns] 100 ml Med 07/21/24 09:51 Discontinued Octreotide Acet Inj [SandoSTATIN Inj] 1,000 mcg IV 50 mcg/hr Vital Signs Vital signs: Vital Signs Temperature 99.1 F 07/21/24 09:21 Pulse Rate 109 H 07/21/24 09:21 Respiratory Rate 20 07/21/24 09:21 Blood Pressure 83/48 L 07/21/24 09:21 Pulse Oximetry (%) 99 07/21/24 09:21 Oxygen Delivery Method Room Air 07/21/24 09:21 Nausea/Vomiting/Diarrhea MDM Narrative MDM Narrative:: Melissa Juarez am scribing for and in the presence of Dr. Vivar. Patient data External records reviewed:: [facility] previous records Clinical information provided by:: patient Social determinants that could affect healthcare access:: none Patient has the following chronic illnesses:: cirrhosis How is presenting disease/condition affected by chronic disease/condition?: exacerbated by Evaluation data The following diagnostics were reviewed and interpreted by me:: lab results and EKG tracing(s) (EKG#1: EKG at 1025 hours.Interpreted by me: sinus rhythm, rate 92, T-wave inversion on lead III) Lab and/or radiology exams considered but not ordered:: none Interpretation Summary: n/a Medications / Prescriptions Medications / Prescriptions considered but not ordered:: none Medication administrations:: Medication Administration History Acetaminophen (Acetaminophen 325 Mg Tablet) 650 mg PO Q6H PRN PRN Reason: Fever >101.5 Stop: 08/20/24 10:52 Acetaminophen (Acetaminophen 500 Mg Tablet) 1,000 mg PO Q6H PRN PRN Reason: PAIN SCALE 1-3 (mild Stop: 08/20/24 10:52 Folic Acid (Folic Acid 1 Mg Tablet) 1 mg PO BID ELIDA Stop: 07/27/24 08:59 Octreotide Acetate 1,000 mcg/ (Sodium Chloride) 102 mls @ 5.1 mls/hr IV .Q20H ELIDA; Protocol Stop: 08/21/24 07:44 Octreotide Acetate 1,000 mcg/ (Sodium Chloride) 102 mls @ 5.1 mls/hr IV .Q20H ONE; Protocol Stop: 07/22/24 07:44 Last Admin: 07/21/24 11:47 Dose: 50 mcg/hr, 5.1 mls/hr Documented By: ER Ceftriaxone Sodium/Dextrose (Rocephin/D5w 1gm Iv Premix) 1 gm in 50 mls @ 100 mls/hr IV QDAY ELIDA Stop: 07/28/24 14:07 Lorazepam (Lorazepam 0.5 Mg Tablet) 0.5 mg PO Q4HR PRN PRN Reason: CIWA Score 2-6 Stop: 07/26/24 11:57 Lorazepam (Lorazepam 2 Mg/Ml Vial) 0.5 mg IV Q2HR PRN PRN Reason: CIWA SCORE 7-13 Stop: 07/26/24 11:57 Lorazepam (Lorazepam 2 Mg/Ml Vial) 1 mg IV Q2HR PRN PRN Reason: CIWA SCORE 14-19 Stop: 07/26/24 11:57 Lorazepam (Lorazepam 2 Mg/Ml Vial) 2 mg IV Q2HR PRN PRN Reason: CIWA SCORE 20-25 Stop: 07/26/24 11:57 Ondansetron HCl (Ondansetron Inj 2 Mg/Ml Inj 2 Ml) 4 mg IV Q6H PRN; Protocol PRN Reason: NAUSEA OR VOMITING Stop: 08/20/24 10:52 Pantoprazole Sodium (Pantoprazole Inj 40 Mg Vial) 40 mg IV BID [facility] Stop: 08/20/24 10:59 Last Admin: 07/21/24 11:43 Dose: 40 mg Documented By: ER Thiamine HCl (Thiamine 100 Mg Tablet) 100 mg PO BID ELIDA Stop: 07/27/24 08:59 Discontinued Medications Sodium Chloride (Ns) 1,000 mls @ 999 mls/hr IV .Q1H1M ONE Stop: 07/21/24 10:27 Last Infusion: 07/21/24 10:58 Dose: Infused Documented By: Admin: 07/21/24 09:57 Dose: 999 mls/hr Documented By: ER Pantoprazole Sodium (Protonix/Ns 80mg Iv Premix) 80 mg in 100 mls @ 10 mls/hr IV X1 ONE Stop: 07/21/24 19:49 Last Infusion: 07/21/24 11:21 Dose: 0 mls/hr Documented By: Admin: 07/21/24 10:22 Dose: 10 mls/hr Documented By: ER Octreotide Acetate 1,000 mcg/ (Sodium Chloride) 102 mls @ 5.1 mls/hr IV .Q20H ONE; Protocol Stop: 07/22/24 05:50 Last Admin: 07/21/24 10:06 Dose: 50 mcg/hr, 5.1 mls/hr Documented By: ER Sodium Chloride (Ns) 1,000 mls @ 999 mls/hr IV .Q1H1M ONE Stop: 07/21/24 13:32 Last Infusion: 07/21/24 13:55 Dose: Infused Documented By: Admin: 07/21/24 12:56 Dose: 999 mls/hr Documented By: ER Sodium Chloride (Ns) 1,000 mls @ 999 mls/hr IV .Q1H1M ONE Stop: 07/21/24 13:55 Last Admin: 07/21/24 12:56 Dose: Not Given Documented By: ER Non-Admin Reason: duplicate Octreotide Acetate (Octreotide Acet Inj 50 Mcg/Ml Vial) 50 mcg IV X1 ONE Stop: 07/21/24 09:51 Last Admin: 07/21/24 10:09 Dose: 50 mcg Documented By: ER Ondansetron HCl (Ondansetron Inj 2 Mg/Ml Inj 2 Ml) 4 mg IV X1 ONE; Protocol Stop: 07/21/24 09:45 Last Admin: 07/21/24 10:03 Dose: 4 mg Documented By: ER Pantoprazole Sodium (Pantoprazole Inj 40 Mg Vial) 80 mg IV X1 ONE Stop: 07/21/24 09:28 Last Admin: 07/21/24 11:43 Dose: Not Given Documented By: ER Non-Admin Reason: Medication Not Available see above. Consultations Consultation(s) initiated? (list below): Yes Consultation #1 (Physician, Specialty, Details): Admission Resident working with Dr. Mathew was made aware of the patient?s HPI, PMHx, lab and/or radiology results. Treatment plan was discussed. Will admit for further evaluation and management. Accepts patient for admission. Time: 10:29 Consultation #2 (Physician, Specialty, Details): I spoke with Dr. Mcneal, GI, made aware of the patient?s HPI, PMHx, lab and/or radiology results. Time: 10:32 Diagnosis Nausea Differential Diagnosis: gastroenteritis, clostridium difficile infection and dehydration Most likely diagnosis given after review of the tests above:: UGIB, hematemesis Admission Indicated Admission indicated?: indicated Admission Request Was there a request for admission?: Yes Admission Attestation Admission request attestation: Discussed case with [] from Hospitalist service regarding admission. Discussed patients ED course, exam findings, labs, and radiology results. The Hospitalist [agrees,declines] to accept the patient for admission. Disposition Plan Disposition Plan: Admit Discharge Plan Plan Patient Disposition: Admit Acute Care w/in Hospital Problem List Clinical Impression: UGIB (upper gastrointestinal bleed), Hematemesis
--- NOTE | 2024-07-21 10:56 | ESHP_ITS ---
Documentation for date of: 07/21/24 HPI History of Present Illness Chief complaint: hematemesis History of present illness: 44-year-old male with past medical history of alcohol use disorder, liver cirrhosis, recent admission for hematemesis and black tarry stools on 07/12/2024. Presented to the ED today 07/21/2024 due to hematemesis. Patient was home last night ate some scrambled eggs and cereal and woke up in the morning feeling dizzy and with blurry vision. Symptoms seem to have resolved at the time however he went to visit his mother here in [place] from [place] and had 3 episodes of profuse bloody vomiting with an additional episode here in the ER, per patient. Patient denies any shortness of breath, chest pain abdominal pain, nausea, recent travel, sick contacts, fevers. ED course: ED vitals: BP 83/48, HR 109, RR 20, temp 99.1, O2 sat 99% on room air ED labs: WBCs 11.3, hemoglobin 6.7, hematocrit 20.2, platelets 182, INR 1.7, glucose 114, lactic acid 3.8, T. bili 1.7, AST 48, alk phos 139, albumin 2.5, lipase 79, toxicology negative for alcohol, EKG sinus rhythm PMHx: As above SX Hx: Appendectomy Social Hx: Used to drink 12 pack every other day has not drank since admission on 07/12/2024, denies illicit drug use including THC, denies smoking Allergies: No known drug allergies Family Hx: Unknown Review of Systems Review of Systems Systems Reviewed: All systems reviewed, normal except as documented Narrative Review of Systems: All 12 symptoms reviewed and denied unless otherwise stated in the HPI. Exam Vital Signs Temp Pulse Resp BP Pulse Ox O2 Del Method 99.1 F 93 20 101/63 100 Room Air 07/21/24 09:21 07/21/24 09:44 07/21/24 09:44 07/21/24 09:44 07/21/24 09:44 07/21/24 09:44 Narrative Exam Physical Exam GENERAL: NAD, AAOx3, pale conjunctiva, icterus HEENT: Moist mucosa. Eyes open, symmetrical, & clear CARDIO: Heart RRR, no obvious murmurs PULM: No noted coughing/dyspnea CTA B/L, no R/W/R GI: Abdomen soft, nondistended, no pain on palpation. BS+ SKIN/MSK/EXT: No wounds/rashes/edema/amputations, no pain on palpation. Pedal pulses present B/L NEURO: AAOx3, no focal neuro deficits, able to move all 4 extremities Results: Labs 07/21/24 09:21 07/21/24 09:21 Labs: Short CBC 07/21/24 Range/Units 09:21 WBC 11.3 H (3.8-10.6) Thou/mm3 Hgb 6.7 L* D (13.5-16.0) g/dL Hct 20.2 L* (41.0-53.0) % Plt Count 182 (140-440) Thou/mm3 BMP 07/21/24 09:21 Sodium 135 L Potassium 4.7 Chloride 104 Carbon Dioxide 21.8 BUN 12 Creatinine 0.7 Glucose 114 H Calcium 7.4 L Cardiac Enzymes 07/21/24 Range/Units 09:21 Troponin I < 0.020 (0.0-0.045) ng/mL Liver Function 07/21/24 Range/Units 09:21 Total Bilirubin 1.7 H (0.3-1.2) mg/dL AST 48 H (0-34) U/L ALT 18 (10-49) U/L Alkaline Phosphatase 139 H (46-116) U/L Albumin 2.5 L (3.5-5.0) gm/dL Quality Measures Quality Measures VTE prophylaxis Medications Home Medications and Allergies Home Medications ?Medication ?Instructions ?Recorded ?Confirmed ?Type No Known Home Medications 07/13/24 0509/01 History Allergies Allergy/AdvReac Type Severity Reaction Status Date / Time nka Allergy Uncoded 07/21/24 09:38 Visit Medications Pantoprazole Sodium (Protonix/Ns 80mg Iv Premix) 80 mg in 100 mls @ 10 mls/hr IV X1 ONE Stop: 07/21/24 19:49 Last Admin: 07/21/24 10:22 Dose: 10 mls/hr Octreotide Acetate 1,000 mcg/ (Sodium Chloride) 102 mls @ 5.1 mls/hr IV .Q20H ONE; Protocol Stop: 07/22/24 05:50 Last Admin: 07/21/24 10:06 Dose: 50 mcg/hr, 5.1 mls/hr Discontinued Medications Sodium Chloride (Ns) 1,000 mls @ 999 mls/hr IV .Q1H1M ONE Stop: 07/21/24 10:27 Last Admin: 07/21/24 09:57 Dose: 999 mls/hr Octreotide Acetate (Octreotide Acet Inj 50 Mcg/Ml Vial) 50 mcg IV X1 ONE Stop: 07/21/24 09:51 Last Admin: 07/21/24 10:09 Dose: 50 mcg Ondansetron HCl (Ondansetron Inj 2 Mg/Ml Inj 2 Ml) 4 mg IV X1 ONE; Protocol Stop: 07/21/24 09:45 Last Admin: 07/21/24 10:03 Dose: 4 mg Pantoprazole Sodium (Pantoprazole Inj 40 Mg Vial) 80 mg IV X1 ONE Stop: 07/21/24 09:28 Assessment & Plan Plan 44-year-old male with past medical history of alcohol use disorder, liver cirrhosis with recent admission on 07/12/2024 due to hematemesis who presented to the ED due to multiple episodes of hematemesis. Patient will be admitted for acute blood loss anemia likely secondary to esophageal varices. #Acute blood loss anemia #GI bleed #Esophageal varices #Alcohol liver cirrhosis #Hyperbilirubinemia Hg on admission 6.7, suspect possible band rupture in the setting of continuing hematemesis post discharge on 07/17/2024 Patient presented with 3-4x episodes of hematemesis Per chart review patient has grade III esophageal varices with 3 bands placed Maddrey score: 28.4, good prognosis. No benefit from steroids at this time Child-Wong Class B, 8 points, Abdominal surgery fariba-operative mortality: 30% MELD-Na: 16 points (6%; 3month mortality) - 1L NS bolus given - Octreotide drip - Pantoprazole 40mg IV BID - Transfuse 2 pRBCs - Monitor H&H - Transfuse if Hg<7 - NPO for possible GI intervention - GI consulted, appreciate recommendations #Alcohol use disorder last drink on 07/12/2024 used to drink 12packs every other day - [facility] protocol Disposition: telemetry, acute GI bleed Fluids: None Feeding: NPO Thrombo prophylaxis: SCDs Gastric Ulcer prophylaxis: Pantoprazole CODE STATUS: Full code Case discussed with my senior Dr. Aceves and my attending Dr. Quincy Chávez MD PGY-1 LPatient examined and case discussed with the team including attending physician. Note reviewed, I agree with the care plan as documented. Mr Moy is a 44year old male admitted for recurrent acute upper GI bleed s/p recent variceal banding x3 on 07/13/2024. Patient had multiple episodes of bloody vomitus, came to ED with Hb 6.7. He was transfused PRBC 1 U and IVF 1L bolus. Received call from ED nurse at 1pm re: BP 80'60s and MAP 52-56. Another IVF bolus 1L x1 ordered, along with 2nd unit of PRBC. ICU team was informed about possible upgrade, given low MAP. Patient was moderately fluid responsive post pressure bagging the 1L NS, BP temporarily improved to 90/60s with MAP 60-62. He continues to have intermittent hemetemesis, GI Dr Mcneal was updated, appreciate recommendations, patient is scheduled for an EGD today. Please refer to the note above for further details. - Fantasma Aceves MD, PGY 2 Disclaimer: The document may contain phonetic/typographic errors due to voice recognition software. These errors are purely due to imperfections in the software program and should not be misconstrued in any way to compromise the substance of the patient's medical care during this visit. L Attending Provider Attestation/Addendum I, Johana Mathew DO, attest that I was physically present for the pederson portions of the service and evaluated the patient with the resident and I reviewed and discussed the case with the resident and agree with the resident's findings and plans of care as documented above Patient is a 44-year-old male with past medical history of alcoholic liver cirrhosis, grade 3 esophageal varices, hemorrhagic gastritis, decompensated cirrhosis alcohol use disorder who presented to the ED after having several episodes of hematemesis that began this morning. He was recently admitted for hematemesis and black tarry stools. Patient underwent endoscopy on 09/01 during which she was found to have acute posthemorrhagic anemia, esophageal varices status post banding and gastritis. Patient was placed on octreotide for 5 days over the course of hospitalization given Protonix. Patient returns to the ED this morning with similar symptoms. He endorses having blurry vision, dizziness and some shortness of breath. He states that his last drink was 2 weeks ago. He denies any headache or anxiety, visual or tactile hallucinations. He endorses some tremors. On exam, patient endorses tenderness to palpation in the epigastric region, but abdomen is soft and nondistended. He was found to have hemoglobin of 6.7 on presentation. Lactic acid was noted to be 3.8. 2 units of PRBCs were ordered in the ED. Patient continue to have episodes of hematemesis. GI was consulted from ED. Patient was admitted to telemetry for further workup and medical management acute blood loss anemia secondary to GI bleed. However, shortly after admission, patient became more hypotensive with a blood pressure of 78/46, which improved with IV fluid bolus. 1 unit of PRBCs had just completed transfusion. However, due to concern for active GI bleed, ICU was consulted. GI was updated regarding patient's condition and plans for EGD this evening. Patient is to be transferred to ICU for closer monitoring at this time due to active GI bleed. 1 unit of FFP has been ordered to be transfused. There are 4 more units of PRBCs on hold. Will follow-up with repeat H&H.
--- NOTE | 2024-07-21 11:07 | PC.NURSE ---
Dr. Sheppard at [facility] assessing patient and updating on POC. States that patient is allowed to have ice chips.
[2024-07-21 11:35] LABS: Amphetamine/Methamp Scrn,U Negative (Negative); Barbiturate Screen,Urine Negative (Negative); Benzodiazepines Screen,Urine Negative (Negative); Benzoylecgonine Screen, Ur Negative (Negative); Fentanyl Screen,Urine Negative (Negative); Opiate Screen,Urine Negative (Negative); THC Screen,Urine Negative (Negative)
--- NOTE | 2024-07-21 11:41 | PD.IMCONS ---
HPI Data of Consult Requesting Physician: Johana Mathew DO Primary Care Provider: Apolinar Chávez MD Consult Narrative Reason for consult: Hematemesis, posthemorrhagic anemia History of present illness: 44 years old male consulted by the ER physician and the internal medicine team for hematemesis and acute posthemorrhagic anemia with a presenting hemoglobin hematocrit 6.7 and 20.2 He was given a fluid challenge as he was somewhat hypotensive given blood transfusion and currently his hemoglobin hematocrit in the ICU 7.9 and 22.6 with a platelet count of 1 82,000 Patient does have a history of alcohol abuse disorder drinks for 2-3 beers per day On 07/13/2024 he underwent upper endoscopy with dilatation Total of 3 bands were put in 3+ esophageal varices and patient also had hypertensive portal gastropathy with mucosal oozing of blood requiring 5 days of octreotide cc:: cc: Johana Mathew DO Review of Systems Review of Systems Systems Reviewed: All systems reviewed, normal except as documented Past Medical History Surgical History OTHER SURGICAL HX: As in the history of present illness Meds Home Medications and Allergies Home Medications ?Medication ?Instructions ?Recorded ?Confirmed ?Type No Known Home Medications 07/13/24 07/13/24 History Allergies Allergy/AdvReac Type Severity Reaction Status Date / Time nka Allergy Uncoded 07/21/24 09:38 Exam Vital Signs Temp Pulse Resp BP Pulse Ox O2 Del Method 98.0 F 83 18 91/43 L 100 Room Air 07/21/24 11:21 07/21/24 11:21 07/21/24 11:21 07/21/24 11:21 07/21/24 09:44 07/21/24 09:44 Routine Respiratory Exam Comments: Normal to auscultation Routine Abdominal Exam Comments: Soft nontender Results Labs 07/21/24 17:02 07/21/24 09:21 Labs: Short CBC 07/21/24 Range/Units 09:21 WBC 11.3 H (3.8-10.6) Thou/mm3 Hgb 6.7 L* D (13.5-16.0) g/dL Hct 20.2 L* (41.0-53.0) % Plt Count 182 (140-440) Thou/mm3 BMP 07/21/24 09:21 Sodium 135 L Potassium 4.7 Chloride 104 Carbon Dioxide 21.8 BUN 12 Creatinine 0.7 Glucose 114 H Calcium 7.4 L Cardiac Enzymes 07/21/24 Range/Units 09:21 Troponin I < 0.020 (0.0-0.045) ng/mL Liver Function 07/21/24 Range/Units 09:21 Total Bilirubin 1.7 H (0.3-1.2) mg/dL AST 48 H (0-34) U/L ALT 18 (10-49) U/L Alkaline Phosphatase 139 H (46-116) U/L Albumin 2.5 L (3.5-5.0) gm/dL Assessment and Plan Additional Assessment & Plan Additional Plan: # Acute upper GI bleed most likely esophageal variceal bleeding or mucosal oozing of blood from the hypertensive portal gastropathy # Acute posthemorrhagic anemia Plan N.p.o. Blood transfusion as necessary Octreotide infusion IV Protonix Consent obtained for fiberoptic esophagogastroduodenoscopy with possible therapeutic intervention possible biopsy under intravenous moderate sedation Thank you for the opportunity to participate in the care of this patient
[2024-07-21] MEDS: PANTOPRAZOLE INJ 40 MG VIAL IV ×2 (11:43→20:19)
[2024-07-21 12:18] LABS: Lactate (Lactic Acid) 2.8 mMol/L (0.4-2.0)
--- NOTE | 2024-07-21 12:47 | PC.NURSE ---
Called Dr. Mathew and informed her on patients low BP 78/46. New orders to be placed.
--- NOTE | 2024-07-21 12:57 | PC.NURSE ---
Dr. Aceves at bedside assesing patient at this time. NS bolus started.
[2024-07-21 13:23] LABS: Reflex Lactate? Y
--- NOTE | 2024-07-21 13:34 | PD.RESCONSUL ---
HPI Data of Consult Requesting Physician: Johana Mathew DO Admitting Provider: Johana Mathew DO Attending Provider: Johana Mathew DO Primary Care Provider: Apolinar Chávez MD Consult Narrative History of present illness: cc: vomiting blood Patient is a 44 year old male with past medical history of alcohol use disorder (last drink 2 weeks ago), decompensated Cirrhosis w/ minimal ascites, Esophageal and perigastric varieces s/p band ligation, 3 total, of esophageal varies grade III on 07/13/2024. Patient recently discharged on 07/17/2024 following band ligation. Patient presented from home to the emergency room with chief complain of hemetemesis, 1 episode of rosy blood at home. Upon arrival patient stated he had a second episode about 1000cc in the emergency room. Pateint denied hematochezia or melena. Diffuse tenderness in all four quadrants. Stated increased shortness of breath since this morning, worsened by excertion. Denied cardiovascular history. Denied chest pain. Denied pyrexia. ED vitals: BP 83/48, HR 109, RR 20, temp 99.1, O2 sat 99% on room air ED labs: WBCs 11.3, hemoglobin 6.7, hematocrit 20.2, platelets 182, INR 1.7, glucose 114, lactic acid 3.8, T. bili 1.7, AST 48, alk phos 139, albumin 2.5, lipase 79, toxicology negative for alcohol, EKG sinus rhythm ICU consulted given recent history of esophageal varices s/p band ligation with acute blood loss secondary to hematemesis. Patient is scheduled for EGD at 7 PM w/ gastroenterology. Monitor for signs of shock. PMH: Decompensated Cirrohosis w/ ascites and varices secondary to alochol Alcohol Use Disorder Esophageal Varices Gastritis Past Surgical History: Appendectomy EGD (07/13/2024) Home Medication: NONE Social History: Denied illicit drug use Alcohol Use Disorder, last drink 2 weeks ago (12 pack a day, 12 oz cans) Allergies: None Code Status: Full Code cc:: cc: Johana Mathew DO Review of Systems Review of Systems Narrative Review of Systems: General appearance: NO weight change, YES fatigue, NO weakness, NO fever, NO chills, NO night sweats,Yes cough secondary to hematemesis Skin: NO rash, NO itching, NO sores, NO moles HEENT: NO Trauma, NO nausea, NO vomiting, NO visual changes, NO blurry vision, NO double vision, NO tinnitus, NO vertigo, NO ear discharge, NO rhinorrhea, NO stuffiness, NO sneezing, NO allergy, NO epistaxis. NO Hoarseness, NO sore throat, NO swollen neck. Cardiac: NO Palpitations, NO dyspnea on exertion, NO orthopnea, NO paroxysmal nocturnal dyspnea, NO edema Respiratory: YES Shortness of Breath, NO Wheezing, NO Cough, NO Sputum, NO hemoptysis GI:NO appetite, NO nausea, YES vomiting, NO dysphagia, NO changes in bowel frequency, NO stool color, NO diarrhea, NO constipation, YES hemetemesis, NO hemorrhoids, NO melena, NO hematechezia, NO abdominal pain, NO jaundice Renal: NO frequency, NO hesitancy, NO urgency, NO hematuria, NO nocturia, NO incontinence MSK: NO muscle weakness, NO gout, NO arthritis, NO muscle stiffness Neuro: NO headaches, NO tremors, NO weakness, NO paralysis, NO seizures, NO loss of consciousness, NO numbness. Hem: NO anemia, NO easy bruising/bleeding, NO petechiae, NO purpura Endo: NO heat/cold intolerance, NO excessive sweating, NO polyuria, NO polydipsia, NO polyphagia, NO thyroid problems, NO diabetes Pysch: NO mood, NO anxiety, NO depression Exam Vital Signs Temp Pulse Resp BP Pulse Ox O2 Del Method 97.9 F 78 18 101/61 100 Room Air 07/21/24 13:07/21/24 13:07/21/24 13:07/21/24 13:07/21/24 13:07/21/24 13:00 Narrative Exam General Appearance: Alert & Oriented X3, well-nourished male who is lying in bed in no acute distress, spider angiomas noted on upper chest. HEENT: Skull symmetrical and atraumatic. Sclera icterus. Conjunctivae pale pink and moist. Pupils equal, round, reactive to light and accommodation (PERRL). External ear without lesion or discharge. Straight, nares patient, mucosa pink, no discharge. Cardio: Normal Rate and Rhythm with S1 and S2 heart sounds. No murmurs or extra heart sounds auscultated. No bruits on carotid auscultation. No peripheral edema or cyanosis. Pedal pulses 3+. Lungs: Symmetric with good expansion. Chest and back non-tender. Breath sounds vesicular without crackles, wheezing or rhonchi Abdomen: Mild tenderness, Non-distended, Hyperractive Reactive Bowel Sounds Neuro: Alert, cooperative, oriented to person, place, and time. Speech clear. CN grossly intact. Upper motor strength 5/5 and Lower motor strength 5/5. Sensation intact. No asterixis. Results Labs 07/21/24 09:21 07/21/24 09:21 Labs: Short CBC 07/21/24 Range/Units 09:21 WBC 11.3 H (3.8-10.6) Thou/mm3 Hgb 6.7 L* D (13.5-16.0) g/dL Hct 20.2 L* (41.0-53.0) % Plt Count 182 (140-440) Thou/mm3 BMP 07/21/24 09:21 Sodium 135 L Potassium 4.7 Chloride 104 Carbon Dioxide 21.8 BUN 12 Creatinine 0.7 Glucose 114 H Calcium 7.4 L Cardiac Enzymes 07/21/24 Range/Units 09:21 Troponin I < 0.020 (0.0-0.045) ng/mL Liver Function 07/21/24 Range/Units 09:21 Total Bilirubin 1.7 H (0.3-1.2) mg/dL AST 48 H (0-34) U/L ALT 18 (10-49) U/L Alkaline Phosphatase 139 H (46-116) U/L Albumin 2.5 L (3.5-5.0) gm/dL Quality Measures Quality Measures VTE prophylaxis Medications Home Medications and Allergies Home Medications ?Medication ?Instructions ?Recorded ?Confirmed ?Type No Known Home Medications 07/13/24 07/13/24 History Allergies Allergy/AdvReac Type Severity Reaction Status Date / Time nka Allergy Uncoded 07/21/24 09:38 Visit Medications Acetaminophen (Acetaminophen 325 Mg Tablet) 650 mg PO Q6H PRN PRN Reason: Fever >101.5 Stop: 08/20/24 10:52 Acetaminophen (Acetaminophen 500 Mg Tablet) 1,000 mg PO Q6H PRN PRN Reason: PAIN SCALE 1-3 (mild Stop: 08/20/24 10:52 Folic Acid (Folic Acid 1 Mg Tablet) 1 mg PO BID ELIDA Stop: 07/27/24 08:59 Octreotide Acetate 1,000 mcg/ (Sodium Chloride) 102 mls @ 5.1 mls/hr IV .Q20H ELIDA; Protocol Stop: 08/21/24 07:44 Octreotide Acetate 1,000 mcg/ (Sodium Chloride) 102 mls @ 5.1 mls/hr IV .Q20H ONE; Protocol Stop: 07/22/24 07:44 Last Admin: 07/21/24 11:47 Dose: 50 mcg/hr, 5.1 mls/hr Sodium Chloride (Ns) 1,000 mls @ 999 mls/hr IV .Q1H1M ONE Stop: 07/21/24 13:55 Last Admin: 07/21/24 12:56 Dose: Not Given Lorazepam (Lorazepam 0.5 Mg Tablet) 0.5 mg PO Q4HR PRN PRN Reason: CIWA Score 2-6 Stop: 07/26/24 11:57 Lorazepam (Lorazepam 2 Mg/Ml Vial) 0.5 mg IV Q2HR PRN PRN Reason: CIWA SCORE 7-13 Stop: 07/26/24 11:57 Lorazepam (Lorazepam 2 Mg/Ml Vial) 1 mg IV Q2HR PRN PRN Reason: CIWA SCORE 14-19 Stop: 07/26/24 11:57 Lorazepam (Lorazepam 2 Mg/Ml Vial) 2 mg IV Q2HR PRN PRN Reason: CIWA SCORE 20-25 Stop: 07/26/24 11:57 Ondansetron HCl (Ondansetron Inj 2 Mg/Ml Inj 2 Ml) 4 mg IV Q6H PRN; Protocol PRN Reason: NAUSEA OR VOMITING Stop: 08/20/24 10:52 Pantoprazole Sodium (Pantoprazole Inj 40 Mg Vial) 40 mg IV BID ELIDA Stop: 08/20/24 10:59 Last Admin: 07/21/24 11:43 Dose: 40 mg Thiamine HCl (Thiamine 100 Mg Tablet) 100 mg PO BID ELIDA Stop: 07/27/24 08:59 Discontinued Medications Sodium Chloride (Ns) 1,000 mls @ 999 mls/hr IV .Q1H1M ONE Stop: 07/21/24 10:27 Last Infusion: 07/21/24 10:58 Dose: Infused Pantoprazole Sodium (Protonix/Ns 80mg Iv Premix) 80 mg in 100 mls @ 10 mls/hr IV X1 ONE Stop: 07/21/24 19:49 Last Infusion: 07/21/24 11:21 Dose: 0 mls/hr Octreotide Acetate 1,000 mcg/ (Sodium Chloride) 102 mls @ 5.1 mls/hr IV .Q20H ONE; Protocol Stop: 07/22/24 05:50 Last Admin: 07/21/24 10:06 Dose: 50 mcg/hr, 5.1 mls/hr Sodium Chloride (Ns) 1,000 mls @ 999 mls/hr IV .Q1H1M ONE Stop: 07/21/24 13:32 Last Admin: 07/21/24 12:56 Dose: 999 mls/hr Octreotide Acetate (Octreotide Acet Inj 50 Mcg/Ml Vial) 50 mcg IV X1 ONE Stop: 07/21/24 09:51 Last Admin: 07/21/24 10:09 Dose: 50 mcg Ondansetron HCl (Ondansetron Inj 2 Mg/Ml Inj 2 Ml) 4 mg IV X1 ONE; Protocol Stop: 07/21/24 09:45 Last Admin: 07/21/24 10:03 Dose: 4 mg Pantoprazole Sodium (Pantoprazole Inj 40 Mg Vial) 80 mg IV X1 ONE Stop: 07/21/24 09:28 Last Admin: 07/21/24 11:43 Dose: Not Given Assessment & Plan Plan Patient is a 44 year old male with past medical history of alcohol use disorder (last drink 2 weeks ago), decompensated cirrhosis w/ minimal ascites, Esophageal Varices Grade III and perigastric varieces s/p band esophageal band ligation (3 total) who was upgraded to ICU for closer monitoring of hematemsis secondary to esophageal varices and acute blood loss secondary to upper GI bleed. 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 CIWA score of 0 on admission. Jaundice noted on physical exam. -[facility] protocol -Thiamine and Folic Acid qday CVS: Hypovolemia, secondary to acute blood loss and lactic acid with MAP <65, improved. -2 Liter bolus -2 units of PRBCs transfused -MAP near 65 -monitor for signs of shock Respiratory: Stable, continue to monitor, patient on room air GI: Acute blood loss, secondary to upper GI bleed s/p Esophageal varices ligation (07/13/2024) Decompensated Cirrhosis secondary to alcohol use disorder, w/ ascites and esophageal varices Hematemsis likely secondary to esophageal varices Patient developed hematemsis over the course of 1 day with 1000cc of rosy blood upon ER visit. Upper GI bleed likely secondary to varices given past medical history of EGD s/p band ligation on 07/13/2024. Gastric Ulcer can not be ruled out be less likely given recent EGD that did not find any ulcers vs Leonela Rolando given increasing cough with hematemsis but less likely. Plan to have EGD with gastroenterology. Consider transfer for TIP procedure if patient continues to have hematemesis. MELD Score 18, Child Wong Class B, 8 points. EGD 07/13/2024: Grade III esophageal varices, 3 bands placed; gastritits w/ hemorrhage -EGD scheduled at 7 PM -NPO -Octerotride Drip -Protonix 40 mg BID -Ceftriaxone 1 gram Qday (07/21/2024-07/27/2024) -Continue to monitor Hgb and Hct, consider transfer for TIPs -Consult GI, Dr. Mcneal, Appreciate Recommendations. #Hyperbilirubinemia #Transaminitis likely in the setting of decompensated cirrhosis. Denied right upper quadrant pain, negative chun sign. Negative Hepatitis panel. Negative cholecytitis from previous US on file. -continue to monitor Renal: Mild Hyponatremia Hypo-osmolar, Hypovolemic Hyponatremia, likely secondary to hematemsis given concern for varices. Sodium deficit 180. mmol. Patient received 2 L bolus NS in ER. -continue to monitor #Lactic Acid, improving Lactic acid likely secondary acute blood loss and hypovolemia -Lactic Acid Heme: Acute Normocytic Anemia, likely secondary to acute blood for upper GI bleed. 2 units of PRBC transfused. -2 units of PRBC transfused -Q4HR Hgb and Hct -Holding Platelet and 2 additional PRBCs -continue to monitor Endo: Stable ID: Leukocytosis Likely reactive secondary to acute blood loss as there are no signs of pyrexia. -continue to monitor Health Maintenance: Disp: Pt is currently admitted to floors for further management of upper GI bleed secondary to esophageal varices, awaiting EGD this evening, monitor for signs of shock. FEN: NPO GI: Protonix 40 mg BID DVT: Compression Device, NO heparin given hematemsis Code: Full Code - The patient's plan was discussed with attending Dr. Micah Luna MD PGY1 Internal Medicine
--- NOTE | 2024-07-21 14:09 | PC.NURSE ---
Dr. Powell at bedside assessing patient and updating patient on POC.
[2024-07-21 15:16] LABS: Reflex Lactate? Y
[2024-07-21] MEDS: cefTRIAXone/D5w 1gm IV premix 1 GM/50 ML BAG IV (15:39)
[2024-07-21 16:45] LABS: Alcohol, Urine Negative (Negative)
[2024-07-21 17:13] LABS: Lactic Acid, 3 HR 1.6 mMol/L (0.4-2.0)
[2024-07-21 17:16] LABS: Hematocrit 22.6 % (41.0-53.0)
[2024-07-21 17:22] LABS: Hemoglobin 7.9 g/dL (13.5-16.0)
[2024-07-21] MEDS: Norepinephrine/D5W 8mg/250ml 8 MG/250 ML BAG 5.613 MG IV (20:28)
[2024-07-21 22:15] LABS: Hematocrit 21.2 % (41.0-53.0)
[2024-07-21 22:24] LABS: Hemoglobin 7.3 g/dL (13.5-16.0)
[2024-07-21] MEDS: BENZOCAINE 20% (Hurricaine) SPRAY 1 DOSE TOP (22:30)
[2024-07-22] VITALS (147 sets, daily range): BP systolic 45–141; BP diastolic 27–108; PULSE 65–124; RESP 8–26; TEMP 36.1–36.7; O2SAT 88–100; BMI 20.2
[2024-07-22 01:15] LABS: Hematocrit 20.3 % (41.0-53.0); Hemoglobin 7.2 g/dL (13.5-16.0)
[2024-07-22] MEDS: RINGERS LACTATED 1000 ML 1,000 ML 999 ML IV (02:05)
[2024-07-22] MEDS: OCTREOTIDE ACET INJ 1,000 MCG in SODIUM CHLORIDE 0.9% 100 ML 5.1 MCG IV (04:02)
[2024-07-22 05:46] LABS: Basophils # (Auto) 0.1 Thou/mm3 (0.0-0.2); Basophils % (Auto) 1 % (0-2.5); Eosinophils # (Auto) 0.4 Thou/mm3 (0.0-0.5); Eosinophils % (Auto) 4 % (0-10); Immature Granulocytes % (Auto) 0 % (0-0); Immature Granulocytes Auto 0.03 Thou/mm3 (0.00-0.00); Lymphocytes # (Auto) 3.9 Thou/mm3 (1.0-4.8); Lymphocytes % (Auto) 40 % (10-50); Mean Corpuscular HGB Conc 35.2 g/dl (31.0-37.0); Mean Corpuscular Hemoglobin 30.2 pg (25.0-35.0); Mean Corpuscular Volume 86 fL (80-100); Monocytes # (Auto) 1.3 Thou/mm3 (0.0-0.8); Monocytes % (Auto) 13 % (0-12); Neutrophils # (Auto) 4.2 Thou/mm3 (1.8-7.7); Neutrophils % (Auto) 42 % (37-80); Nucleated Red Blood Cell % 0 /100 WBC (0); Platelet Count 117 Thou/mm3 (140-440); RDW Standard Deviation 53.4 fL (35.1-43.9); Red Blood Count 2.05 Miln/mm3 (4.50-5.90); White Blood Count 9.8 Thou/mm3 (3.8-10.6)
[2024-07-22 05:54] LABS: Hematocrit 17.6 % (41.0-53.0); Hemoglobin 6.2 g/dL (13.5-16.0)
[2024-07-22 06:38] LABS: Alanine Aminotransferase 14 U/L (10-49); Albumin, Serum 1.9 gm/dL (3.5-5.0); Albumin/Globulin Ratio 0.6 (1.2-2.2); Alkaline Phosphatase 99 U/L (46-116); Anion Gap 10 (7-16); Aspartate Amino Transferase 43 U/L (0-34); BUN/Creatinine Ratio 24 Ratio (12-20); Bilirubin,Total 1.8 mg/dL (0.3-1.2); Blood Urea Nitrogen 19 mg/dL (9-23); Calcium (Corrected) 8.6 mg/dL (8.5-10.1); Carbon Dioxide 21.2 mMol/L (20.0-31.0); Chloride 110 mMol/L (98-107); Creatinine (Component) 0.8 mg/dL (0.6-1.3); Estimated Creatinine Clearance 92.2 mL/min (>60); Globulin 3.1 gm/dL (2.3-3.5); Glucose 106 mg/dL (74-106); Magnesium 1.6 mg/dL (1.6-2.6); Osmolality,Calculated 283 (275-295); Phosphorous 3.9 mg/dL (2.4-5.1); Potassium 4.4 mMol/L (3.4-5.1); Sodium 141 mMol/L (136-145); eGFR > 60 See Note
[2024-07-22 06:50] LABS: Calcium 6.9 mg/dL (8.3-10.6)
[2024-07-22] MEDS: cefTRIAXone/D5w 1gm IV premix 1 GM/50 ML BAG IV (10:15)
[2024-07-22] MEDS: FOLIC ACID INJ 1 MG/0.2 ML IVP ×2 (10:16→21:41)
[2024-07-22] MEDS: PANTOPRAZOLE INJ 40 MG VIAL IV ×2 (10:16→21:44)
[2024-07-22] MEDS: THIAMINE INJ 100 MG/ML VIAL 2 ML IVP (10:16)
--- NOTE | 2024-07-22 10:34 | PC.CC ---
[id number] Oliva to follow up on transfer request. Dr. Courtney stated Dr. Mcneal is doing EGD today and he will let me know if transfer is needed but until then hold off the transfer request. [id number] Oliva and he updated me that during pt last admission pt had 6 bands. During current admission, Dr. Mcneal performed EGD and found a large ulcer at the area of banding. Dr. Oliva stated Dr. Mcneal is planning to perform another EGD today. He stated to hold off the transfer for now until he speak to Dr. Mcneal. [id number] received printed orders from Dr. Aguilar that pt needs to be transferred for Tips procedure needs Gastroenterology services.
--- NOTE | 2024-07-22 10:50 | ESPR_ITS ---
<Statement entered by Joviat Obrien MD - 07/22/24 12:13> TOTAL CC TIME: 45 MIN I saw and evaluated the patient. I reviewed the resident?s note and agree with findings and plan as documented in the resident?s note. Upon my evaluation, this patient had a high probability of imminent or life- threatening deterioration due to hemorrhagic shock which required my direct attention, intervention, and personal management. This time is exclusive of time spent on procedures, which are documented separately if performed. History of alcoholic cirrhosis complicated by gastric and esophageal varices status post recent esophageal varices banding x 3. Discussed with Dr. Mcneal. Patient is scheduled for repeat endoscopy. Depending on findings and response to treatment we may need to transfer to tertiary center to consider TIPS. Continue octreotide, high-dose Protonix, ceftriaxone. Transfuse PRBC to maintain hemoglobin greater than 7 avoid aggressive transfusions or unnecessary blood product such as FFP and platelets. Keep MAP ideally approximately 65 mmHg-currently on Levophed Follow-up H&H every 4 hours Documentation for date of: 07/22/24 Subjective Subjective Interval history: Patient is a 44 year old male with past medical history of alcohol use disorder (last drink 2 weeks ago), decompensated Cirrhosis w/ minimal ascites, Esophageal and perigastric varieces s/p band ligation, 3 total, of esophageal varies grade III on 07/13/2024. Patient recently discharged on 07/17/2024 following band ligation. Patient presented from home to the emergency room with chief complain of hemetemesis, 1 episode of rosy blood at home. Upon arrival patient stated he had a second episode about 1000cc in the emergency room. Pateint denied hematochezia or melena. Diffuse tenderness in all four quadrants. Stated increased shortness of breath since this morning, worsened by excertion. Denied cardiovascular history. Denied chest pain. Denied pyrexia. ED vitals: BP 83/48, HR 109, RR 20, temp 99.1, O2 sat 99% on room air ED labs: WBCs 11.3, hemoglobin 6.7, hematocrit 20.2, platelets 182, INR 1.7, glucose 114, lactic acid 3.8, T. bili 1.7, AST 48, alk phos 139, albumin 2.5, lipase 79, toxicology negative for alcohol, EKG sinus rhythm 07/21/2024: ICU consulted given recent history of esophageal varices s/p band ligation with acute blood loss secondary to hematemesis. Patient is scheduled for EGD at 7 PM w/ gastroenterology. 07/23/2024: [facility], EGD findings showing ulceration at the site of previous band ligation. Day 2 of Octreotide drip at rate of 50 mcg. Patient will likely require second EGD if hematemsis does not improve or possible transfer. NPO. Hemoglobin 6.3 and hct 17.6, 2 units of PRBCs transfused. Hgb/Hct checks q4 hrs. IV Iron started. Patient continues to be alert and orientated X 3. Patient improved abdominal pain. No hematemsis overnight. 1 bowel movement this morning noted for Melena. Exam Vital Signs Temp Pulse Resp BP Pulse Ox O2 Del Method O2 Flow Rate 98.0 F 90 19 107/77 100 Room Air 3 07/22/24 10:00 07/22/24 10:07/22/24 10:07/22/24 10:07/22/24 10:07/22/24 10:00 07/22/24 08:55 Narrative Exam General Appearance: Alert & Oriented X3, well-nourished male who is lying in bed in no acute distress, spider angiomas noted on upper chest. HEENT: Skull symmetrical and atraumatic. Sclera icterus. Conjunctivae pale pink and moist. Pupils equal, round, reactive to light and accommodation (PERRL). External ear without lesion or discharge. Straight, nares patient, mucosa pink, no discharge. Cardio: Normal Rate and Rhythm with S1 and S2 heart sounds. No murmurs or extra heart sounds auscultated. No bruits on carotid auscultation. No peripheral edema or cyanosis. Pedal pulses 3+. Lungs: Symmetric with good expansion. Chest and back non-tender. Breath sounds vesicular without crackles, wheezing or rhonchi Abdomen: improved tenderness, Non-distended, Hyperractive Reactive Bowel Sounds Neuro: Alert, cooperative, oriented to person, place, and time. Speech clear. CN grossly intact. Upper motor strength 5/5 and Lower motor strength 5/5. Sensation intact. No asterixis. Objective Labs 07/22/24 04:47 07/22/24 04:47 Labs: Laboratory Results - last 24 hr 07/21/24 07/21/24 07/21/24 09:21 11:18 12:10 WBC RBC Hgb Hct MCV MCH MCHC RDW Std Deviation Plt Count Neut % (Auto) Lymph % (Auto) [place] % (Auto) Eos % (Auto) Baso % (Auto) Neut # (Auto) Lymph # (Auto) [place] # (Auto) Eos # (Auto) Baso # (Auto) Immature Gran # (Auto) Absolute Nucleated RBC Immature Gran % Nucleated RBC % Sodium Potassium Chloride Carbon Dioxide Anion Gap BUN Creatinine Estim Creat Clear Calc eGFR BUN/Creatinine Ratio Glucose Calculated Osmolality Lactic Acid 2.8 H Calcium Corrected Calcium Phosphorus Magnesium Total Bilirubin AST ALT Alkaline Phosphatase Total Protein Albumin Globulin Albumin/Globulin Ratio Urine Opiates Screen Negative Urine Fentanyl Screen Negative Ur Barbiturates Screen Negative U Amphetamin/Meth Scrn Negative U Benzodiazepines Scrn Negative U Cocaine Metab Screen Negative U Marijuana (THC) Screen Negative Urine Alcohol Blood Type A Positive Antibody Screen NEGATIVE Crossmatch See Detail Blood Bank Wristband ID Yes Blood Bank Comment FFP Ready 07/21/24 07/21/24 07/21/24 15:25 17:02 21:54 WBC RBC Hgb 7.9 L 7.3 L Hct 22.6 L 21.2 L* MCV MCH MCHC RDW Std Deviation Plt Count Neut % (Auto) Lymph % (Auto) [place] % (Auto) Eos % (Auto) Baso % (Auto) Neut # (Auto) Lymph # (Auto) [place] # (Auto) Eos # (Auto) Baso # (Auto) Immature Gran # (Auto) Absolute Nucleated RBC Immature Gran % Nucleated RBC % Sodium Potassium Chloride Carbon Dioxide Anion Gap BUN Creatinine Estim Creat Clear Calc eGFR BUN/Creatinine Ratio Glucose Calculated Osmolality Lactic Acid 1.6 Calcium Corrected Calcium Phosphorus Magnesium Total Bilirubin AST ALT Alkaline Phosphatase Total Protein Albumin Globulin Albumin/Globulin Ratio Urine Opiates Screen Urine Fentanyl Screen Ur Barbiturates Screen U Amphetamin/Meth Scrn U Benzodiazepines Scrn U Cocaine Metab Screen U Marijuana (THC) Screen Urine Alcohol Negative Blood Type Antibody Screen Crossmatch Blood Bank Wristband ID Blood Bank Comment 07/22/24 07/22/24 01:01 04:47 WBC 9.8 RBC 2.05 L Hgb 7.2 L 6.2 L* Hct 20.3 L* 17.6 L* MCV 86 MCH 30.2 MCHC 35.2 RDW Std Deviation 53.4 H Plt Count 117 L D Neut % (Auto) 42 Lymph % (Auto) 40 [place] % (Auto) 13 H Eos % (Auto) 4 Baso % (Auto) 1 Neut # (Auto) 4.2 Lymph # (Auto) 3.9 [place] # (Auto) 1.3 H Eos # (Auto) 0.4 Baso # (Auto) 0.1 Immature Gran # (Auto) 0.03 H Absolute Nucleated RBC 0.00 Immature Gran % 0 Nucleated RBC % 0 Sodium 141 Potassium 4.4 Chloride 110 H Carbon Dioxide 21.2 Anion Gap 10 BUN 19 Creatinine 0.8 Estim Creat Clear Calc 92.2 eGFR > 60 BUN/Creatinine Ratio 24 H Glucose 106 Calculated Osmolality 283 Lactic Acid Calcium 6.9 L Corrected Calcium 8.6 Phosphorus 3.9 Magnesium 1.6 Total Bilirubin 1.8 H AST 43 H ALT 14 Alkaline Phosphatase 99 D Total Protein 5.0 L Albumin 1.9 L D Globulin 3.1 Albumin/Globulin Ratio 0.6 L Urine Opiates Screen Urine Fentanyl Screen Ur Barbiturates Screen U Amphetamin/Meth Scrn U Benzodiazepines Scrn U Cocaine Metab Screen U Marijuana (THC) Screen Urine Alcohol Blood Type Antibody Screen Crossmatch Blood Bank Wristband ID Blood Bank Comment Quality Measures Quality Measures VTE prophylaxis Assessment & Plan Assessment Current Active Medications: Generic Name Dose Route Start Last Admin Trade Name Freq PRN Reason Stop Dose Admin Acetaminophen 650 mg 07/21/24 10:53 Acetaminophen 325 Mg Tablet PO 08/20/24 10:52 Q6H PRN Fever >101.5 Acetaminophen 1,000 mg 07/21/24 10:53 Acetaminophen 500 Mg Tablet PO 08/20/24 10:52 Q6H PRN PAIN SCALE 1-3 (mild Folic Acid 1 mg 07/22/24 09:00 07/22/24 10:16 Folic Acid Inj 1 Mg/0.2 Ml IVP 08/21/24 08:59 1 mg BID ELIDA Administration Octreotide Acetate 1,000 mcg/ 102 mls @ 5.1 mls/hr 07/22/24 07:45 07/22/24 04:02 Sodium Chloride IV 08/21/24 07:44 50 mcg/hr .Q20H ELIDA 5.1 mls/hr Administration Protocol 50 MCG/HR Ceftriaxone Sodium/Dextrose 1 gm in 50 mls @ 100 mls/hr 07/21/24 14:08 07/22/24 10:15 Rocephin/D5w 1gm Iv Premix IV 07/28/24 14:07 100 mls/hr QDAY ELIDA Administration Norepinephrine/Dextrose 8 mg in 250 mls @ 5.613 mls/hr 07/21/24 20:27 07/22/24 08:06 Levophed In D5w 8mg/250ml IV 08/20/24 20:26 0.09 mcg/kg/min .Q24H PRN 10.104 mls/hr PER PROTOCOL Titration Protocol 0.05 MCG/KG/MIN Ondansetron HCl 4 mg 07/21/24 10:53 Ondansetron Inj 2 Mg/Ml Inj 2 Ml IV 08/20/24 10:52 Q6H PRN NAUSEA OR VOMITING Protocol Pantoprazole Sodium 40 mg 07/21/24 11:00 07/22/24 10:16 Pantoprazole Inj 40 Mg Vial IV 08/20/24 10:59 40 mg BID ELIDA Administration Thiamine HCl 100 mg 07/22/24 09:00 07/22/24 10:16 Thiamine Inj 100 Mg/Ml Vial 2 Ml IVP 08/21/24 08:59 100 mg QDAY ELIDA Administration Plan Patient is a 44 year old male with past medical history of alcohol use disorder (last drink 2 weeks ago), decompensated cirrhosis w/ minimal ascites, Esophageal Varices Grade III and perigastric varieces s/p band esophageal band ligation (3 total) who was upgraded to ICU for closer monitoring of hematemsis secondary to esophageal varices and acute blood loss secondary to upper GI bleed. 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 CIWA score of 0 on admission. Jaundice noted on physical exam. Alcohol levels 0. CIWA 0. D/C CIWA. -Thiamine and Folic Acid QDay CVS: Shock, secondary to hypovolemic from acute upper GI bleed. Despite fluid resuscitation and 4 units of PRBCs for this admission. MAPs low 40s overnight requiring Levophed at 0.01-->increased 0.09 Plan -Levophed 0.09 -MAP goal near 65 Respiratory: Stable, continue to monitor, patient on room air GI: Hematemsis likely secondary to ulceration at previous band ligation site Acute blood loss, secondary to upper GI bleed s/p Esophageal varices ligation (07/13/2024) Decompensated Cirrhosis secondary to alcohol use disorder, w/ ascites and esophageal varices Patient developed upper GI bleed over the course of 1 day starting on 07/20/2024 patient had an additional 1000 cc of rosy. Sent for ACL bleeding given past medical history of EGD status post band ligation on 07/13/2024. Patient made n.p.o. repeat EGD noted for ulceration at site of previous band ligation, this is likely source of upper GI bleed. Continue to monitor hemoglobin hematocrit currently transfusing PRBC given decreased hemoglobin on 07/12/2024---> total course of PRBCs 4 units. MELD Score 18, Child Wong Class B, 8 points. EGD 07/13/2024: Grade III esophageal varices, 3 bands placed; gastritits w/ hemorrhage EGD 07/22/2024: Ulceration at the site of previous band ligation with 1 area. There is blood clot which was washed this area is at 4 o'clock position on the right side. No bleeding seen anywhere from the esophagus or the entire body of the stomach pyloric channel duodenal bulb and descending duodenum -NPO, possible follow up EGD -Octerotride Drip -Protonix 40 mg IVP BID -Ceftriaxone 1 gram Qday (07/21/2024-07/27/2024) -Continue to monitor Hgb and Hct, consider transfer for TIPs -Consult GI, Dr. Mcneal, Appreciate Recommendations. #Hyperbilirubinemia #Transaminitis likely in the setting of decompensated cirrhosis. Denied right upper quadrant pain, negative chun sign. Negative Hepatitis panel. Negative cholecytitis from previous US on file. -continue to monitor Renal: Mild Hyponatremia Hypo-osmolar, Hypovolemic, resolved. Hyponatremia, likely secondary to hematemsis given concern for varices. Sodium deficit 180. mmol. Patient received 2 L bolus NS in ER. -continue to monitor Lactic Acid, resolved. Heme: Acute Normocytic Anemia, likely secondary to acute blood for upper GI bleed. Total units transfused since admission 4 units of PRBCs. -2 units of PRBC, 07/22/2024 -IV Iron 125 mg IV Qday -Q4HR Hgb and Hct -continue to monitor Endo: Stable ID: Leukocytosis, resolved. -continue to monitor Health Maintenance: Disp: Pt is currently admitted to floors for further management of upper GI bleed secondary to esophageal varices, awaiting EGD this evening, monitor for signs of shock. FEN: NPO GI: Protonix 40 mg BID DVT: Compression Device, NO heparin given upper GI bleed drips: Octerotride drip (day 2) and Levophed 0.09 mcg/kg/min Code: Full Code - The patient's plan was discussed with attending Dr. Micah Luna MD PGY1 Internal Medicine
[2024-07-22] MEDS: FERRIC SOD GLUC INJ 125 MG in SODIUM CHLORIDE 0.9% 100 ML 110 MG IV (12:15)
[2024-07-22 12:52] LABS: Hematocrit 24.8 % (41.0-53.0)
[2024-07-22 12:58] LABS: Hemoglobin 8.6 g/dL (13.5-16.0)
[2024-07-22 13:03] LABS: INR 1.6 (0.9-1.3); Partial Thromboplastin Time 33.6 Seconds (22.0-36.0); Prothrombin Time 17.4 Seconds (9.0-12.2)
[2024-07-22 17:12] LABS: Hematocrit 23.6 % (41.0-53.0)
[2024-07-22 17:23] LABS: Hemoglobin 8.6 g/dL (13.5-16.0)
[2024-07-22] MEDS: ONDANSETRON INJ 2 MG/ML INJ 2 ML 4 MG IV (20:02)
--- NOTE | 2024-07-22 20:43 | ESDS_ITS ---
Planned Discharge Date 07/22/24 DS: Providers Provider Date of admission: 07/21/24 10:53 Primary care physician: Apolinar Chávez MD Admitting Provider: Johana Mathew DO Attending Provider on Admission: Johana Mathew DO Consults: 07/21/24 10:33 Consult to Gastroenterology Stat Comment: Consulting Provider: Zita Mcneal 07/21/24 13:58 Consult to Covering And Lining Supervisor Stat Comment: Consulting Provider: Jovita Obrien 07/21/24 15:20 Health Equity Referral - Knowledge Deficit Routine Comment: Positive screening for knowledge deficit needs. Attending Provider on DC: Modesta Hedrick MD Discharging Provider: Modesta Hedrick MD DS: Diagnosis Problem List Completed Was Problem List Reviewed/Reconciled?: Yes Hospital Course Hospital Course Hospital course: Mr. Moy is a 44-year-old male with past medical history of alcohol use disorder, decompensated liver cirrhosis, recent hospitalization with EGD on July 13, 2024 with 3 bands for esophageal varices who presented to [facility] with a chief complaint of hematemesis on July 21, 2024. Patient states that he was at home and in the morning when he woke he began to feel dizzy and noted that he had blurry vision and that he was on the way to visit his mother in [facility] at which point he developed multiple episodes of hematemesis with 3 episodes at home and 1 episode in the emergency room. Patient was admitted to the ICU for close monitoring due to hypotension and tachycardia. Initial hemoglobin was found to be 6.7 and GI was consulted for an upper GI bleed. Patient underwent EGD on July 21, 2024 where medical appointment scheduler noticed that there was an ulceration at the site of the previous band with a blood clot. He noted at that point there was no bleeding seen anywhere in the esophagus or the entire body of the stomach and descending duodenum. He did recommend that the patient maintain n.p.o. status in case he required EGD once again. On the morning of July 22, 2024 patient's morning labs came back for a hemoglobin of 6.3 which required 2 more units of PRBCs to be transfused. Patient again underwent EGD on the evening of July 22, 2024 and underwent epinephrine infusion at the site of ulcer where a blood vessel was visibly seen with oozing. Also patient underwent band ligation at a previous esophageal varices. Patient was to be kept n.p.o. and monitored with serial CBC. About an hour after the procedure patient had 2 large-volume hematemesis along with hypotension. Patient had been on chemical pressors since July 21 with low doses of Levophed at 0.01-0.05 but on the evening of July 22 is chemical pressor requirement continued to increase and following the large-volume hematemesis decision was made to transfuse 2 more units of PRBCs and to initiate transfer process for TIPS. Consulted with gastroenterology service here at our hospital who suggested that that is the best course of action given the fact the patient has had multiple EGDs and still is suffering from portal hypertensive gastropathy. Will initiate the transfer process for the patient. Plan of care discussed with supervising attending Dr. Navin Hedrick M.D. PGY-3 Status at Discharge Functional status at discharge: bed bound Overall status at discharge: patient is not back to baseline Time Spent with Patient Time attestation: Total time spent providing and/or coordinating discharge services: Time spent: Greater than 30 minutes Exam Vital Signs Temp Pulse Resp BP Pulse Ox O2 Del Method O2 Flow Rate 97.9 F 119 H 17 106/72 98 Room Air 3 07/22/24 20:29 07/22/24 20:29 07/22/24 20:29 07/22/24 20:29 07/22/24 20:29 07/22/24 12:15 07/22/24 20:29 Narrative Exam General Appearance: Alert & Oriented X3, well-nourished male who is lying in bed in no acute distress, spider angiomas noted on upper chest. HEENT: Skull symmetrical and atraumatic. Sclera icterus. Conjunctivae pale pink and moist. Pupils equal, round, reactive to light and accommodation (PERRL). External ear without lesion or discharge. Straight, nares patient, mucosa pink, no discharge. Cardio: Normal Rate and Rhythm with S1 and S2 heart sounds. No murmurs or extra heart sounds auscultated. No bruits on carotid auscultation. No peripheral edema or cyanosis. Pedal pulses 3+. Lungs: Symmetric with good expansion. Chest and back non-tender. Breath sounds vesicular without crackles, wheezing or rhonchi Abdomen: improved tenderness, Non-distended, Hyperractive Reactive Bowel Sounds Neuro: Alert, cooperative, oriented to person, place, and time. Speech clear. CN grossly intact. Upper motor strength 5/5 and Lower motor strength 5/5. Sensation intact. No asterixis. Discharge Plan Prescriptions/Referrals Prescriptions/Med Rec: No Action No Known Home Medications Referrals: Apolinar Chávez MD [Primary Care Provider] - Patient/Caregiver Discharge Instructions Print Language: [place] Quality Discharge Quality Measures none MD Attestestation MD Attestation I agree with the assessment and plan of the IM resident as above. Patient has GI bleeding and recommendation is for Transfer to higher level of care for possible TIPS procedure. Patient is having blood loss anemia received PRBC today. Patient was on pressor treatment to maintain blood pressure. The patient is also on octreotide drip.
[2024-07-22 21:10] LABS: Hematocrit 24.2 % (41.0-53.0)
[2024-07-22 21:15] LABS: Hemoglobin 8.7 g/dL (13.5-16.0)
[2024-07-22] MEDS: LORazepam 2 MG/ML VIAL IVP (21:25)
[2024-07-22] MEDS: DEXMEDETOMIDINE 400 MCG IVPB 400 MCG/100 ML BAG IV ×2 (21:30→23:34)
--- NOTE | 2024-07-22 22:43 | PC.NURSE ---
Spoke to David in [facility] - due to IR staffing only compressor station operator for emergent procedures such as STEMI, call back @ [phone] to present to ICU + IR.
--- NOTE | 2024-07-22 23:02 | PC.NURSE ---
Addendum entered by Odilia Jaeger RN 07/23/24 01:06: Awais called back to notify that patient has been accepted by MD Joseph. Will call back for details on room and floor. Original Note: Contacted [facility], spoke to Awais, Information given. They will call back
--- NOTE | 2024-07-22 23:04 | PC.NURSE ---
Attempted to call and fax information to [facility], phone goes to voicemail and fax saying Busy
[2024-07-23] VITALS (19 sets, daily range): BP systolic 87–124; BP diastolic 60–82; PULSE 58–70; RESP 7–17; TEMP 35.8–36.6; O2SAT 95–99
--- NOTE | 2024-07-23 01:28 | PC.NURSE ---
Received call from [facility], Accepting physician MD Jake HINKLE [phone] Report to [phone] ext [phone]
[2024-07-23 02:07] LABS: Hematocrit 30.6 % (41.0-53.0)
[2024-07-23] MEDS: OCTREOTIDE ACET INJ 1,000 MCG in SODIUM CHLORIDE 0.9% 100 ML 5.1 MCG IV (03:00)
== END 2024-07-23 04:22 | disposition short-term general hospital (02) | DRG 280 ==
LOC: SERX 11:17 → SERHOLD 11:19 → S2SX 15:00
PROVIDERS: Nurse Practitioner Primary Care; Specialist; Student in an Organized Health Care Education/Training Program; Admitting Provider Internal Medicine; Emergency Provider Emergency Medicine; PCP Family Medicine; Visit Provider Internal Medicine
PROC: 0DJ08ZZ Inspection of Upper Intestinal Tract, Via Natural or Artificial Opening Endoscopic (ICD-10-PCS; CPT 43239; principal; 2024-07-21 17:00)
PROC: (CPT 43239; principal; 2024-07-22 18:00)
DX: K70.30 Alcoholic cirrhosis of liver without ascites (principal); D62 Acute posthemorrhagic anemia; F10.10 Alcohol abuse, uncomplicated; K76.6 Portal hypertension; I85.11 Secondary esophageal varices with bleeding; R57.9 Shock, unspecified; E87.1 Hypo-osmolality and hyponatremia; E86.1 Hypovolemia; D72.829 Elevated white blood cell count, unspecified; Z90.49 Acquired absence of other specified parts of digestive tract
CPT/HCPCS: 36415; 36430; 80053; 80307; 80320; 83605; 83690; 83735; 84100; 84145; 84484; 85014; 85018; 85025; 85610; 85730; 86850; 86900; 86901; 86923; 86927; 87081; 93005; 96360; 96361; 96365; 96374; 96375; 99285; A4217; A4649; J0171; J0696; J1200; J2060; J2250; J2310; J2354; J2405; J2470; J2916; J3010; J3411; J3490; J7030; J7050; J7120; P9016; A9270; G0480

== ENCOUNTER → 2024-09-13 | Outpatient (CLI) | payer MEDICAID, SELFPAY | END | disposition home or self-care (01) | LOC: SWHD 09:13 | PROVIDERS: PCP Internal Medicine; Referring Provider Internal Medicine; Visit Provider Student in an Organized Health Care Education/Training Program | DX: I87.313 Chronic venous hypertension (idiopathic) with ulcer of bilateral lower extremity (principal); L97.429 Non-pressure chronic ulcer of left heel and midfoot with unspecified severity; L97.419 Non-pressure chronic ulcer of right heel and midfoot with unspecified severity; K74.60 Unspecified cirrhosis of liver; R60.0 Localized edema | CPT/HCPCS: 99213; G0463 ==